=== PATIENT | male | born 1950 | race Caucasian/White ===

== ENCOUNTER 2017-02-03 11:39 | Inpatient (IN) | payer MEDICARE, BC, OTHER ==
[~2017-02-03 11:39] MED LIST: Bisacodyl 5 MG Tab PO PRN; Lactated Ringers 1,000 ML IV SCH; Lidocaine 1%/Sod Bicarbonate in NS 8.4% 1 ML Syringe IV PRN; Magnesium Hydroxide 400 MG/5 ML Susp 30 ML Cup PO PRN; Morphine 2 MG/ML Syringe IVPUSH PRN; Naloxone 0.4 MG/ML SDV IVPUSH PRN; Ondansetron 4 MG/2 ML SDV IVPUSH PRN; Sennosides 8.6 MG Tab PO PRN; Sodium Chloride 0.9% 10 ML Syringe FLUSH PRN; diphenhydrAMINE 50 MG/ML SDV IVPUSH PRN
--- NOTE | 2017-02-03 12:52 | PCM.PREANE ---
Preanesthetic Assessment - Anesthesia/Transfusion/Family Hx Anesthesia History: Prior Anesthesia Without Reaction Family History of Anesthesia Reaction: No Transfusion History: No Prior Transfusion(s) - Review of Systems General: No Symptoms Pulmonary: No Symptoms Cardiovascular: No Symptoms Gastrointestinal: No Symptoms Neurological: No Symptoms Other: Reports: Diabetes (BS: 96 @ 1249) - Physical Assessment NPO Status Date: 02/02/17 NPO Status Time: 00:00 Pulse: 64 O2 Sat by Pulse Oximetry: 94 Respiratory Rate: 16 Blood Pressure: 171/88 Height: 1.78 m Weight: 124 kg ASA Class: 3 Mental Status: Alert & Oriented x3 Airway Class: Mallampati = 2 Dentition: Reports: Normal Dentition, Missing Tooth/Teeth Thyro-Mental Finger Breadths: 2 Mouth Opening Finger Breadths: 2 ROM/Head Extension: Full Lungs: Clear to Auscultation, Normal Respiratory Effort Cardiovascular: Regular Rate, Regular Rhythm - Lab Values: Laboratory Last Values MRSA (PCR) Negative 01/21/17 12:02 - Imaging/EKG Impressions: Sinus rhythm RBBB rate 73 - Allergies Allergies/Adverse Reactions: Allergies Allergy/AdvReac Type Severity Reaction Status Date / Time No Known Allergies Allergy Verified 01/31/17 14:22 - Anesthesia Plan Pre-Op Medication Ordered: None - Acknowledgements Anesthesia Type Planned: Spinal Pt an Appropriate Candidate for the Planned Anesthesia: Yes Alternatives and Risks of Anesthesia Discussed w Pt/Guardian: Yes Pt/Guardian Understands and Agrees with Anesthesia Plan: Yes PreAnesthesia Questionnaire HEENT History: Reports: Hard of Hearing Other HEENT History: uses glasses for reading Cardiovascular History: Reports: High Cholesterol, Hypertension Gastrointestinal History: Reports: GERD Genitourinary History: Reports: BPH Other Genitourinary History: nocturia Musculoskeletal History: Reports: Back Pain, Chronic Other Musculoskeletal History: Shoulder Arthralgia Psychiatric History: Reports: Depression Endocrine/Metabolic History: Reports: Diabetes, Type II, Obesity/BMI 30+ - Infectious Disease History Infectious Disease History: Reports: None - Past Surgical History HEENT Surgical History: Reports: None Cardiovascular Surgical History: Reports: None Respiratory Surgical History: Reports: None GI Surgical History: Reports: None Male Surgical History: Reports: None Endocrine Surgical History: Reports: None Musculoskeletal Surgical History: Reports: Joint Replacement, ORIF - SUBSTANCE USE Smoking Status *Q: Never Smoker Tobacco Use Within Last Twelve Months: Smokeless Tobacco Second Hand Smoke Exposure: No Days Per Week of Alcohol Use: 2 Number of Drinks Per Day: 0 Total Drinks Per Week: 0 Recreational Drug Use History: No - HOME MEDS Home Medications: Home Meds Hydrochlorothiazide 50 mg PO DAILY 10/04/15 [History] Losartan [Cozaar] 100 mg PO DAILY 10/04/15 [History] Omeprazole 20 mg PO DAILY 10/04/15 [History] amLODIPine [Norvasc] 10 mg PO DAILY 10/04/15 [History] atorvaSTATin [Lipitor] 40 mg PO BID 10/04/15 [History] metFORMIN [Glucophage] 1,000 mg PO BID 10/04/15 [History] Cholecalciferol (Vitamin D3) [Vitamin D] 5,000 unit PO DAILY 01/31/17 [History] Finasteride 5 mg PO DAILY 01/31/17 [History] Omeprazole 20 mg PO DAILY 01/31/17 [History] Potassium Chloride 20 meq PO DAILY 01/31/17 [History] Terazosin [Hytrin] 2 mg PO BEDTIME 01/31/17 [History] - CURRENT (IN HOUSE) MEDS Current Meds: Current Medications Aspirin (Ecotrin) 325 mg PO BID [facility] Bisacodyl (Dulcolax) 5 mg PO DAILY PRN PRN Reason: Constipation Cyclobenzaprine HCl (Flexeril) 10 mg PO TID PRN PRN Reason: Spasms Diphenhydramine HCl (Benadryl) 25 mg IVPUSH Q4H PRN PRN Reason: Nausea Docusate Sodium (Colace) 100 mg PO BID [facility] Lactated Ringer's (Ringers, Lactated) 1,000 mls @ 125 mls/hr IV ASDIRECTED [facility] Cefazolin Sodium/Dextrose 2 gm (/ Premix) 50 mls @ 100 mls/hr IV Q8H [facility] Stop: 02/03/17 23:44 Ketorolac Tromethamine (Toradol) 15 mg IVPUSH Q6H PRN PRN Reason: Pain Lidocaine/Sodium Bicarbonate (Buffered Lidocaine 1% In Ns 8.4%) 0.25 ml IV ONETIME PRN PRN Reason: Prior to IV Start Stop: 02/03/17 18:00 Magnesium Hydroxide (Milk Of Magnesia) 30 ml PO BID PRN PRN Reason: Constipation Morphine Sulfate (Morphine) 2 mg IVPUSH Q2H PRN PRN Reason: Breakthrough Pain Naloxone HCl (Narcan) 0.1 mg IVPUSH Q5M PRN PRN Reason: Oversedation Ondansetron HCl (Zofran) 4 mg IVPUSH Q6H PRN PRN Reason: Nausea/Vomiting Oxycodone/Acetaminophen (Percocet 325-5 Mg) 1 - 2 tab PO Q4H PRN PRN Reason: Pain Senna (Senna) 8.6 mg PO BID PRN PRN Reason: Constipation Sodium Chloride (Saline Flush) 10 ml FLUSH ASDIRECTED PRN PRN Reason: Keep Vein Open Discontinued Medications Bupivacaine HCl (Marcaine 0.25%) Confirm Administered Dose 30 ml .ROUTE .STK- MED ONE Stop: 02/03/17 12:28 Cefazolin Sodium (Ancef) Confirm Administered Dose 2 gm .ROUTE .STK-MED ONE Stop: 02/03/17 12:27 Iodine (Iodine 2% Mild Tincture) Confirm Administered Dose 30 ml .ROUTE .STK- MED ONE Stop: 02/03/17 12:28 Tranexamic Acid (Cyklokapron) Confirm Administered Dose 1,000 mg .ROUTE .STK- MED ONE Stop: 02/03/17 12:27 Vancomycin HCl (Vancomycin) Confirm Administered Dose 1 gm .ROUTE .STK-MED ONE Stop: 02/03/17 12:27
[2017-02-03] MEDS ORDERED: fentaNYL 100 MCG/2 ML SDV ONE (13:25)
[2017-02-03] MEDS ORDERED: Propofol 200 MG/20 ML SDV ONE ×3 (13:25→15:24)
[2017-02-03] MEDS ORDERED: Ondansetron 4 MG/2 ML SDV ONE (13:25)
[2017-02-03] MEDS ORDERED: ceFAZolin 1 GM Vial ONE ×2 (13:26→13:27)
[2017-02-03] MEDS ORDERED: Lidocaine 1% 4 ML ONE (13:26)
[2017-02-03] MEDS: Bupivacaine 0.25% 30 ML SDV ONE ×2 (14:39→15:08)
[2017-02-03] MEDS: ceFAZolin 1 GM Vial ONE ×2 (14:40→15:03)
[2017-02-03] MEDS: Iodine/Sodium Iodide 2% Tincture 30 ML Bottle ONE ×2 (14:40→15:01)
[2017-02-03] MEDS: Vancomycin 1 GM SDV ONE ×2 (14:42→15:11)
[2017-02-03] MEDS: Morphine 8 MG, EPINEPHrine 0.3 MG, Cefuroxime 750 MG, Ketorolac 30 MG, Sodium Chloride ... ONE ×15 (14:42→17:51)
[2017-02-03] MEDS ORDERED: Lactated Ringers 1,000 ML ONE ×2 (15:43)
[2017-02-03] MEDS ORDERED: diphenhydrAMINE 50 MG/ML SDV IVPUSH PRN (15:58)
[2017-02-03] MEDS ORDERED: fentaNYL 100 MCG/2 ML SDV IVPUSH PRN (15:58)
--- NOTE | 2017-02-03 15:59 | PCM.POSTAN ---
POST ANESTHESIA ASSESSMENT - MENTAL STATUS Mental Status: Alert, Oriented - VITAL SIGNS Pulse Rate: 67 SaO2: 97 Resp Rate: 9 Blood Pressure: 119/69 Temperature: 36.6 C - RESPIRATORY Respiratory Status: Respiratory Rate WNL, Airway Patent, O2 Saturation Stable, Supplemental Oxygen - CARDIOVASCULAR CV Status: Pulse Rate WNL, Blood Pressure Stable - GASTROINTESTINAL GI Status: No Symptoms - PAIN Pain Score: 0 - POST OP HYDRATION Hydration Status: Adequate & Stable - OBSERVATIONS Free Text/Narrative:: no anesthesia complications noted
--- NOTE | 2017-02-03 16:22 | CR ---
Left knee: AP and lateral portable views of the left knee were obtained. Comparison: No previous knee study. Knee prosthesis is seen. Components are aligned. Soft tissue air is seen from the surgical procedure. Underlying bony structures are intact. Impression: 1. Satisfactory radiographic appearance of recently placed left knee prosthesis. Diagnostic code #2
[2017-02-03] MEDS: metFORMIN 500 MG Tab PO SCH (18:17)
--- NOTE | 2017-02-03 18:28 | PCM.CONS ---
H&P History of Present Illness - General Date of Service: 02/03/17 Admit Problem/Dx: Admission Diagnosis/Problem Admission Diagnosis/Problem Osteoarthritis of knee Source of Information: Patient, Old Records History Limitations: Reports: No Limitations - History of Present Illness Initial Comments - Free Text/Narative: Aditya is a 66-year-old male status post left total knee arthroplasty with Dr. Houston this afternoon. Patient states currently he has no pain in his knee. Legs are still "trying to wake up". He has not had any nausea. He is on 2 L nasal cannula supplemental oxygen currently. Denies shortness of breath chest pain cough palpitations wheezing shortness of breath. He is pleasant and talkative with family in the room this evening. Past medical history type 2 diabetes with recent A1c of 6.1, hypertension, hyperlipidemia, GERD, BPH, depression, chronic low back pain with lumbar spondylosis and degenerative disc disease. Hospitalist service is consulted for postoperative medical management. Patient is full CODE STATUS. Left Knee Pain Score (Numeric/FACES): 5 - Related Data Allergies/Adverse Reactions: Allergies Allergy/AdvReac Type Severity Reaction Status Date / Time No Known Allergies Allergy Verified 01/31/17 14:22 Home Medications: Home Meds amLODIPine [Norvasc] 10 mg PO DAILY 10/04/15 [History] atorvaSTATin [Lipitor] 20 mg PO BID 10/04/15 [History] metFORMIN [Glucophage] 1,000 mg PO BID 10/04/15 [History] Cholecalciferol (Vitamin D3) [Vitamin D] 5,000 unit PO DAILY 01/31/17 [History] Finasteride 5 mg PO DAILY 01/31/17 [History] Omeprazole 20 mg PO DAILY 01/31/17 [History] Potassium Chloride 20 meq PO DAILY 01/31/17 [History] Terazosin [Hytrin] 2 mg PO BEDTIME 01/31/17 [History] Acetaminophen/Diphenhydramine [Tylenol Pm Ex-Strength Caplet] 2 tab PO ASDIRECTED PRN 02/03/17 [History] Aspirin [Carteret Aspirin] 81 mg PO DAILY 02/03/17 [History] Furosemide 60 mg PO DAILY 02/03/17 [History] Magnesium Oxide 1 tab PO DAILY 02/03/17 [History] Meloxicam 15 mg PO DAILY PRN 02/03/17 [History] Past Medical History HEENT History: Reports: Hard of Hearing Other HEENT History: uses glasses for reading Cardiovascular History: Reports: High Cholesterol, Hypertension Gastrointestinal History: Reports: GERD Genitourinary History: Reports: BPH Other Genitourinary History: nocturia Musculoskeletal History: Reports: Back Pain, Chronic Other Musculoskeletal History: Shoulder Arthralgia Psychiatric History: Reports: Depression Endocrine/Metabolic History: Reports: Diabetes, Type II, Obesity/BMI 30+ - Infectious Disease History Infectious Disease History: Reports: None - Past Surgical History HEENT Surgical History: Reports: None Cardiovascular Surgical History: Reports: None Respiratory Surgical History: Reports: None GI Surgical History: Reports: None Male Surgical History: Reports: None Endocrine Surgical History: Reports: None Musculoskeletal Surgical History: Reports: Joint Replacement, ORIF Social & Family History - Tobacco Use Smoking Status *Q: Never Smoker Years of Tobacco use: 8 Used Tobacco, but Quit: Yes Month Tobacco Last Used: 1985 Second Hand Smoke Exposure: No - Caffeine Use Caffeine Use: Reports: Coffee - Alcohol Use Days Per Week of Alcohol Use: 2 Number of Drinks Per Day: 0 Total Drinks Per Week: 0 - Recreational Drug Use Recreational Drug Use: No Drug Use in Last 12 Months: No H&P Review of Systems - Review of Systems: Review Of Systems: See Below General: Reports: No Symptoms HEENT: Reports: No Symptoms Pulmonary: Reports: No Symptoms Cardiovascular: Reports: No Symptoms Gastrointestinal: Reports: No Symptoms Genitourinary: Reports: No Symptoms, Other (soto in place) Musculoskeletal: Reports: No Symptoms, Other (denies c/o knee or leg pain at this time.) Psychiatric: Reports: No Symptoms Neurological: Reports: No Symptoms Exam - Exam Exam: See Below - Vital Signs Vital Signs: Last Vital Signs Temp 97.8 F 02/03/17 16:50 Pulse 54 L 02/03/17 16:50 Resp 16 02/03/17 18:00 BP 121/71 02/03/17 16:50 Pulse Ox 98 02/03/17 18:00 Weight: 275 lb - Exam Quality Assessment: Supplemental Oxygen, Urinary Catheter General: Alert, Oriented, Cooperative HEENT: Conjunctiva Clear, EACs Clear, Mucosa Moist & [place], Pupils Equal, PERRLA Neck: Supple Lungs: Clear to Auscultation, Normal Respiratory Effort Cardiovascular: Regular Rate, Regular Rhythm GI/Abdominal Exam: Normal Bowel Sounds, Soft, Non-Tender (Male) Exam: Deferred Rectal (Males) Exam: Deferred Extremities: Normal Capillary Refill, Other (Mickey and ice to knee) Neurological: Cranial Nerves Intact Neuro Extensive - Mental Status: Alert, Oriented x3, Normal Mood/Affect, Normal Cognition, Memory Intact Psychiatric: Alert, Normal Affect, Normal Mood - Patient Data Lab Results Last 24 hrs: Laboratory Results - last 24 hr 02/03/17 02/03/17 02/03/17 Range/Units 12:25 12:25 12:49 APTT 27 (22-36) SECONDS Sodium 140 (136-145) mEq/L Potassium 3.6 (3.5-5.1) mEq/L Chloride 104 (98-107) mEq/L Carbon Dioxide 28 (21-32) mEq/L Anion Gap 11.6 (5-15) BUN 12 (7-18) mg/dL Creatinine 0.8 (0.7-1.3) mg/dL Est Cr Clr Drug Dosing TNP Estimated GFR (MDRD) > 60 (>60) mL/min BUN/Creatinine Ratio 15.0 (14-18) Glucose 100 (80-115) mg/dL POC Glucose 96 (80-115) mg/dL Calcium 9.6 (8.5-10.1) mg/dL 02/03/17 Range/Units 17:21 APTT (22-36) SECONDS Sodium (136-145) mEq/L Potassium (3.5-5.1) mEq/L Chloride (98-107) mEq/L Carbon Dioxide (21-32) mEq/L Anion Gap (5-15) BUN (7-18) mg/dL Creatinine (0.7-1.3) mg/dL Est Cr Clr Drug Dosing Estimated GFR (MDRD) (>60) mL/min BUN/Creatinine Ratio (14-18) Glucose (80-115) mg/dL POC Glucose 107 (80-115) mg/dL Calcium (8.5-10.1) mg/dL Result Diagrams: 02/03/17 12:25 Consult PN Assessment/Plan POD#: 0 Procedures: Procedures ASSAY OF CREATININE (05/14/16) ASSAY OF MAGNESIUM (01/27/17) C-REACTIVE PROTEIN (07/29/14) COLONOSCOPY W/LESION REMOVAL (10/04/15) COMPLETE CBC W/AUTO DIFF WBC (07/29/14) COMPREHEN METABOLIC PANEL (01/27/17) CT ABD & PELV 1/> REGNS (05/14/16) EXTREMITY STUDY (12/18/16) GLUCOSE BLOOD TEST (10/04/15) LIPID PANEL (01/14/17) METABOLIC PANEL TOTAL CA (12/31/16) MRI LUMBAR SPINE W/O DYE (12/17/16) OFFICE/OUTPATIENT VISIT EST (01/14/17) OFFICE/OUTPATIENT VISIT NEW (12/18/16) RBC SED RATE AUTOMATED (07/29/14) ROUTINE VENIPUNCTURE (01/27/17) TISSUE EXAM BY PATHOLOGIST (10/04/15) (1) S/P total knee arthroplasty SNOMED Code(s): 5743659403557, 7251333892276 Code(s): Z96.659 - PRESENCE OF UNSPECIFIED ARTIFICIAL KNEE JOINT Priority: High Current Visit: Yes Qualifiers: Laterality: left Qualified Code(s): Z96.652 - Presence of left artificial knee joint (2) Osteoarthritis SNOMED Code(s): 369172784 Code(s): M19.90 - UNSPECIFIED OSTEOARTHRITIS, UNSPECIFIED SITE Priority: High Current Visit: Yes Qualifiers: Osteoarthritis location: knee Osteoarthritis type: primary Laterality: left Qualified Code(s): M17.12 - Unilateral primary osteoarthritis, left knee (3) Type 2 diabetes mellitus SNOMED Code(s): 03215957 Code(s): E11.9 - TYPE 2 DIABETES MELLITUS WITHOUT COMPLICATIONS Priority: Medium Current Visit: Yes Qualifiers: Diabetes mellitus complication status: without complication Diabetes mellitus community development manager insulin use: without community development manager use Qualified Code(s): E11.9 - Type 2 diabetes mellitus without complications (4) HTN (hypertension) SNOMED Code(s): 26780270 Code(s): I10 - ESSENTIAL (PRIMARY) HYPERTENSION Priority: Medium Current Visit: Yes Qualifiers: Hypertension type: unspecified Qualified Code(s): I10 - Essential (primary ) hypertension (5) HLD (hyperlipidemia) SNOMED Code(s): 12165694 Code(s): E78.5 - HYPERLIPIDEMIA, UNSPECIFIED Priority: Medium Current Visit: No Qualifiers: Hyperlipidemia type: unspecified Qualified Code(s): E78.5 - Hyperlipidemia , unspecified (6) BPH (benign prostatic hyperplasia) SNOMED Code(s): 081951355 Code(s): N40.0 - BENIGN PROSTATIC HYPERPLASIA WITHOUT LOWER URINRY TRACT SYMP Priority: Medium Current Visit: Yes Qualifiers: Lower urinary tract symptom detail: unspecified (7) GERD (gastroesophageal reflux disease) SNOMED Code(s): 471191177 Code(s): K21.9 - GASTRO-ESOPHAGEAL REFLUX DISEASE WITHOUT ESOPHAGITIS Priority: Medium Current Visit: Yes (8) Depression SNOMED Code(s): 02078373 Code(s): F32.9 - MAJOR DEPRESSIVE DISORDER, SINGLE EPISODE, UNSPECIFIED Priority: Medium Current Visit: No Qualifiers: Depression Type: unspecified Qualified Code(s): F32.9 - Major depressive disorder, single episode, unspecified (9) Chronic low back pain SNOMED Code(s): 109894043 Code(s): M54.5 - LOW BACK PAIN; G89.29 - OTHER CHRONIC PAIN Priority: Medium Current Visit: No Qualifiers: Back pain laterality: unspecified Problem List Initiated/Reviewed/Updated: Yes Plan: I/P: S/P lt total knee arthroplasty, POD # 0, Cte - Pain management and DVT prophylax - PT/OT - RT/IS - Hgb --Will follow with am labs - VSS; wean from supplemental oxygen when able. Chronic conditions: Type 2 diabetes, most recent A1c 6.1. -Accu-Cheks before meals and at bedtime, continue home medications, sliding scale insulin if needed -Hypertension, continue home meds, stable -Hyperlipidemia -GERD -BPH, Soto catheter in currently discontinue per protocol and monitor urine output -Depression -Chronic low back pain -Right bundle branch block Other: GI Prophylax CM/SW for DC planning Patient is full Code status.
[2017-02-03] MEDS ORDERED: 50% Dextrose in Water 50 ML Syringe IVPUSH PRN (18:37)
[2017-02-03] MEDS: Acetaminophen/oxyCODONE 325-5 MG Tab PO PRN (19:51)
[2017-02-03] MEDS: Docusate Sodium 100 MG Cap PO SCH (20:09)
[2017-02-03] MEDS: Simvastatin 20 MG Tab PO SCH (20:10)
[2017-02-03] MEDS: Potassium Chloride 10 MEQ Tab.ER PO SCH (20:11)
[2017-02-03] MEDS ORDERED: Simvastatin 20 MG Tab PO SCH (21:00)
[2017-02-03] MEDS ORDERED: Terazosin 1 MG Cap PO SCH (21:00)
[2017-02-03] MEDS: ceFAZolin 2 GM in Premix Bag 1 BAG IV SCH (21:05)
[2017-02-03] MEDS: Ketorolac 15 MG/ML SDV IVPUSH PRN (22:09)
[2017-02-03] MEDS: Insulin Aspart 100 Units/ML 3 ML Pen SUBCUT SCH (23:10)
[2017-02-04] MEDS: Acetaminophen/oxyCODONE 325-5 MG Tab PO PRN ×2 (01:23→17:13)
[2017-02-04] MEDS: Cyclobenzaprine 10 MG Tab PO PRN ×2 (01:23→14:05)
[2017-02-04] MEDS ORDERED: Potassium Chloride 20 MEQ Tab.ER PO SCH (07:00)
[2017-02-04] MEDS: Insulin Aspart 100 Units/ML 3 ML Pen SUBCUT SCH ×4 (12:08→23:02)
[2017-02-04] MEDS: ceFAZolin 2 GM in Premix Bag 1 BAG IV SCH ×2 (12:43→18:05)
[2017-02-04] MEDS: Ketorolac 15 MG/ML SDV IVPUSH PRN (14:05)
--- NOTE | 2017-02-04 16:37 | PCM.CONSN ---
- General Info Date of Service: 02/04/17 Admission Dx/Problem (Free Text): Admission Diagnosis/Problem Admission Diagnosis/Problem Osteoarthritis of knee POD #1 S/P Lt TKA with Dr. Houston. Pain is "unbelievable". Slept most of the night, concern for undiagnosed REBECCA as oxygen was low most of night despite being on supplemental oxygen. Tolerating meals without n/v. When I saw him this morning he had not yet been OOB as the knee "just hurts too much". VSS otherwise. Functional Status: Reports: Tolerating Diet, Incentive Spirometry - Review of Systems General: Reports: No Symptoms HEENT: Reports: No Symptoms Pulmonary: Reports: No Symptoms Cardiovascular: Reports: No Symptoms Gastrointestinal: Reports: No Symptoms Genitourinary: Reports: No Symptoms Musculoskeletal: Reports: Leg Pain (knee) Skin: Reports: No Symptoms Neurological: Reports: No Symptoms Psychiatric: Reports: No Symptoms - Patient Data Vitals - Most Recent: Last Vital Signs Temp 97.5 F 02/03/17 17:14 Pulse 59 L 02/03/17 20:02 Resp 16 02/04/17 00:00 BP 134/76 02/03/17 20:02 Pulse Ox 94 L 02/04/17 00:00 Weight - Most Recent: 275 lb I&O - Last 24 Hours: Intake & Output 02/03/17 02/04/17 02/04/17 22:59 06:59 14:59 Intake Total 1045 120 Output Total 650 Balance 395 120 Lab Results Last 24 Hours: Laboratory Results - last 24 hr 02/03/17 02/03/17 02/03/17 Range/Units 12:25 12:25 12:49 APTT 27 (22-36) SECONDS Sodium 140 (136-145) mEq/L Potassium 3.6 (3.5-5.1) mEq/L Chloride 104 (98-107) mEq/L Carbon Dioxide 28 (21-32) mEq/L Anion Gap 11.6 (5-15) BUN 12 (7-18) mg/dL Creatinine 0.8 (0.7-1.3) mg/dL Est Cr Clr Drug Dosing TNP Estimated GFR (MDRD) > 60 (>60) mL/min BUN/Creatinine Ratio 15.0 (14-18) Glucose 100 (80-115) mg/dL POC Glucose 96 (80-115) mg/dL Calcium 9.6 (8.5-10.1) mg/dL 02/03/17 02/03/17 Range/Units 17:21 22:12 APTT (22-36) SECONDS Sodium (136-145) mEq/L Potassium (3.5-5.1) mEq/L Chloride (98-107) mEq/L Carbon Dioxide (21-32) mEq/L Anion Gap (5-15) BUN (7-18) mg/dL Creatinine (0.7-1.3) mg/dL Est Cr Clr Drug Dosing Estimated GFR (MDRD) (>60) mL/min BUN/Creatinine Ratio (14-18) Glucose (80-115) mg/dL POC Glucose 107 97 (80-115) mg/dL Calcium (8.5-10.1) mg/dL Med Orders - Current: Current Medications Amlodipine Besylate (Norvasc) 10 mg PO DAILY [facility] Aspirin (Ecotrin) 325 mg PO BID [facility] Bisacodyl (Dulcolax) 5 mg PO DAILY PRN PRN Reason: Constipation Cholecalciferol (Vitamin D3) 5,000 units PO DAILY [facility] Cyclobenzaprine HCl (Flexeril) 10 mg PO TID PRN PRN Reason: Spasms Last Admin: 02/04/17 01:23 Dose: 10 mg Dextrose/Water (Dextrose 50% In Water) 50 ml IVPUSH ASDIRECTED PRN PRN Reason: Hypoglycemia Diphenhydramine HCl (Benadryl) 25 mg IVPUSH Q4H PRN PRN Reason: Nausea Diphenhydramine HCl (Benadryl) 25 mg IVPUSH Q6H PRN PRN Reason: Itching Docusate Sodium (Colace) 100 mg PO BID [facility] Last Admin: 02/03/17 20:09 Dose: 100 mg Fentanyl (Sublimaze) 50 mcg IVPUSH Q5M PRN PRN Reason: PAIN Finasteride (Proscar) 5 mg PO DAILY [facility] Furosemide (Lasix) 60 mg PO DAILY [facility] Cefazolin Sodium/Dextrose 2 gm (/ Premix) 50 mls @ 100 mls/hr IV Q8H [facility] Stop: 02/04/17 13:59 Last Admin: 02/03/17 21:05 Dose: 100 mls/hr Insulin Aspart (Novolog) 0 unit SUBCUT QIDACANDBED [facility] PRN Reason: Protocol Last Admin: 02/04/17 12:08 Dose: Not Given Ketorolac Tromethamine (Toradol) 15 mg IVPUSH Q6H PRN PRN Reason: Pain Last Admin: 02/03/17 22:09 Dose: 15 mg Losartan Potassium (Cozaar) 100 mg PO DAILY [facility] Magnesium Hydroxide (Milk Of Magnesia) 30 ml PO BID PRN PRN Reason: Constipation Magnesium Oxide (Magnesium Oxide) 400 mg PO DAILY [facility] Metformin HCl (Glucophage) 1,000 mg PO BIDMEALS [facility] Last Admin: 02/03/17 18:17 Dose: 1,000 mg Morphine Sulfate (Morphine) 2 mg IVPUSH Q2H PRN PRN Reason: Breakthrough Pain Naloxone HCl (Narcan) 0.1 mg IVPUSH Q5M PRN PRN Reason: Oversedation Ondansetron HCl (Zofran) 4 mg IVPUSH Q6H PRN PRN Reason: Nausea/Vomiting Oxycodone/Acetaminophen (Percocet 325-5 Mg) 1 - 2 tab PO Q4H PRN PRN Reason: Pain Last Admin: 02/04/17 01:23 Dose: 2 tab Pantoprazole Sodium (Protonix) 40 mg PO ACBREAKFAST [facility] Potassium Chloride (Klor-Con 10) 20 meq PO BID [facility] Last Admin: 02/03/17 20:11 Dose: 20 meq Senna (Senna) 8.6 mg PO BID PRN PRN Reason: Constipation Simvastatin (Zocor) 20 mg PO BEDTIME [facility] Last Admin: 02/03/17 20:10 Dose: 20 mg Sodium Chloride (Saline Flush) 10 ml FLUSH ASDIRECTED PRN PRN Reason: Keep Vein Open Discontinued Medications Bupivacaine HCl (Marcaine 0.25%) Confirm Administered Dose 30 ml .ROUTE .STK- MED ONE Stop: 02/03/17 12:28 Last Admin: 02/03/17 15:08 Dose: 30 ml Cefazolin Sodium (Ancef) Confirm Administered Dose 2 gm .ROUTE .STK-MED ONE Stop: 02/03/17 12:27 Last Admin: 02/03/17 15:03 Dose: 2 gm Cefazolin Sodium (Ancef) Confirm Administered Dose 2 gm .ROUTE .STK-MED ONE Stop: 02/03/17 13:27 Cefazolin Sodium (Ancef) Confirm Administered Dose 1 gm .ROUTE .STK-MED ONE Stop: 02/03/17 13:28 Morphine Sulfate 8 mg/Epinephrine HCl 0.3 mg/Cefuroxime Sodium 750 mg/Ketorolac Tromethamine 30 mg/Sodium Chloride 17.9 ml 0 mg .XX ONETIME ONE Stop: 02/03/17 14:46 Last Admin: 02/03/17 17:51 Dose: Not Given Fentanyl (Sublimaze) Confirm Administered Dose 100 mcg .ROUTE .STK-MED ONE Stop: 02/03/17 13:26 Lactated Ringer's (Ringers, Lactated) 1,000 mls @ 125 mls/hr IV ASDIRECTED CLEOPATRA Last Admin: 02/03/17 12:25 Dose: 125 mls/hr Lidocaine HCl (Xylocaine-Mpf 1%) Confirm Administered Dose 4 mls @ as directed .ROUTE .STK-MED ONE Stop: 02/03/17 13:27 Lactated Ringer's (Ringers, Lactated) Confirm Administered Dose 1,000 mls @ as directed .ROUTE .STK-MED ONE Stop: 02/03/17 15:44 Lactated Ringer's (Ringers, Lactated) Confirm Administered Dose 1,000 mls @ as directed .ROUTE .STK-MED ONE Stop: 02/03/17 15:44 Iodine (Iodine 2% Mild Tincture) Confirm Administered Dose 30 ml .ROUTE .STK- MED ONE Stop: 02/03/17 12:28 Last Admin: 02/03/17 15:01 Dose: 18 ml Lidocaine/Sodium Bicarbonate (Buffered Lidocaine 1% In Ns 8.4%) 0.25 ml IV ONETIME PRN PRN Reason: Prior to IV Start Stop: 02/03/17 18:00 Last Admin: 02/03/17 12:24 Dose: 0.25 ml Ondansetron HCl (Zofran) Confirm Administered Dose 4 mg .ROUTE .STK-MED ONE Stop: 02/03/17 13:26 Propofol (Diprivan 20 Ml) Confirm Administered Dose 200 mg .ROUTE .STK-MED ONE Stop: 02/03/17 13:26 Propofol (Diprivan 20 Ml) Confirm Administered Dose 200 mg .ROUTE .STK-MED ONE Stop: 02/03/17 14:48 Propofol (Diprivan 20 Ml) Confirm Administered Dose 200 mg .ROUTE .STK-MED ONE Stop: 02/03/17 15:25 Tranexamic Acid (Cyklokapron) Confirm Administered Dose 1,000 mg .ROUTE .STK- MED ONE Stop: 02/03/17 12:27 Last Admin: 02/03/17 15:16 Dose: 1,000 mg Vancomycin HCl (Vancomycin) Confirm Administered Dose 1 gm .ROUTE .STK-MED ONE Stop: 02/03/17 12:27 Last Admin: 02/03/17 15:11 Dose: 1 gm - Exam Quality Assessment: Supplemental Oxygen, DVT Prophylaxis General: Alert, Oriented, Cooperative, No Acute Distress HEENT: Pupils Equal, EOMI, Mucous Membr. Moist/[place] Neck: Supple Lungs: Clear to Auscultation, Normal Respiratory Effort Cardiovascular: Regular Rate, Regular Rhythm GI/Abdominal Exam: Normal Bowel Sounds, Soft, Non-Tender (Male) Exam: Deferred Extremities: Other (Ice and kanchan to lt knee; CMS + and = bilat to LE) Peripheral Pulses: 1+: Dorsalis Pedis (L), Dorsalis Pedis (R) Neurological: No New Focal Deficit Psy/Mental Status: Alert (falling asleep during conversation this morning ) Consult PN Assessment/Plan POD#: 1 Procedures: Procedures ASSAY OF CREATININE (05/14/16) ASSAY OF MAGNESIUM (01/27/17) C-REACTIVE PROTEIN (07/29/14) COLONOSCOPY W/LESION REMOVAL (10/04/15) COMPLETE CBC W/AUTO DIFF WBC (07/29/14) COMPREHEN METABOLIC PANEL (01/27/17) CT ABD & PELV 1/> REGNS (05/14/16) EXTREMITY STUDY (12/18/16) GLUCOSE BLOOD TEST (10/04/15) LIPID PANEL (01/14/17) METABOLIC PANEL TOTAL CA (12/31/16) MRI LUMBAR SPINE W/O DYE (12/17/16) OFFICE/OUTPATIENT VISIT EST (01/14/17) OFFICE/OUTPATIENT VISIT NEW (12/18/16) RBC SED RATE AUTOMATED (07/29/14) ROUTINE VENIPUNCTURE (01/27/17) TISSUE EXAM BY PATHOLOGIST (10/04/15) (1) S/P total knee arthroplasty SNOMED Code(s): 7936471436769, 7605382593140 Code(s): Z96.659 - PRESENCE OF UNSPECIFIED ARTIFICIAL KNEE JOINT Priority: High Current Visit: Yes Qualifiers: Laterality: left Qualified Code(s): Z96.652 - Presence of left artificial knee joint (2) Osteoarthritis SNOMED Code(s): 046065543 Code(s): M19.90 - UNSPECIFIED OSTEOARTHRITIS, UNSPECIFIED SITE Priority: High Current Visit: Yes Qualifiers: Osteoarthritis location: knee Osteoarthritis type: primary Laterality: left Qualified Code(s): M17.12 - Unilateral primary osteoarthritis, left knee (3) Type 2 diabetes mellitus SNOMED Code(s): 46878974 Code(s): E11.9 - TYPE 2 DIABETES MELLITUS WITHOUT COMPLICATIONS Priority: Medium Current Visit: Yes Qualifiers: Diabetes mellitus complication status: without complication Diabetes mellitus retirement insulin use: without retirement use Qualified Code(s): E11.9 - Type 2 diabetes mellitus without complications (4) HTN (hypertension) SNOMED Code(s): 86653090 Code(s): I10 - ESSENTIAL (PRIMARY) HYPERTENSION Priority: Medium Current Visit: Yes Qualifiers: Hypertension type: unspecified Qualified Code(s): I10 - Essential (primary ) hypertension (5) HLD (hyperlipidemia) SNOMED Code(s): 13211471 Code(s): E78.5 - HYPERLIPIDEMIA, UNSPECIFIED Priority: Medium Current Visit: No Qualifiers: Hyperlipidemia type: unspecified Qualified Code(s): E78.5 - Hyperlipidemia , unspecified (6) BPH (benign prostatic hyperplasia) SNOMED Code(s): 072784877 Code(s): N40.0 - BENIGN PROSTATIC HYPERPLASIA WITHOUT LOWER URINRY TRACT SYMP Priority: Medium Current Visit: Yes Qualifiers: Lower urinary tract symptom detail: unspecified (7) GERD (gastroesophageal reflux disease) SNOMED Code(s): 074663179 Code(s): K21.9 - GASTRO-ESOPHAGEAL REFLUX DISEASE WITHOUT ESOPHAGITIS Priority: Medium Current Visit: Yes (8) Depression SNOMED Code(s): 36247539 Code(s): F32.9 - MAJOR DEPRESSIVE DISORDER, SINGLE EPISODE, UNSPECIFIED Priority: Medium Current Visit: No Qualifiers: Depression Type: unspecified Qualified Code(s): F32.9 - Major depressive disorder, single episode, unspecified (9) Chronic low back pain SNOMED Code(s): 549909060 Code(s): M54.5 - LOW BACK PAIN; G89.29 - OTHER CHRONIC PAIN Priority: Medium Current Visit: No Qualifiers: Back pain laterality: unspecified Problem List Initiated/Reviewed/Updated: Yes My Orders Last 24 Hours: My Active Orders 02/03/17 18:36 Accu Check [Blood Glucose Check, Bedside] [RC] WITHMEALSANDBED 02/03/17 18:37 Dextrose 50% in Water 50 ml IVPUSH ASDIRECTED PRN 02/03/17 21:00 Potassium Chloride [Klor-Con 10] 20 meq PO BID Simvastatin [Zocor] 20 mg PO BEDTIME 02/03/17 22:00 Insulin Aspart [NovoLOG] See Protocol SUBCUT QIDACANDBED 02/04/17 09:00 Losartan [Cozaar] 100 mg PO DAILY 02/04/17 Breakfast ADA Diabetic [[employer] Diet] [DIET] Plan: I/P: S/P lt total knee arthroplasty, POD # 1, Cte - Pain management and DVT prophylax - PT/OT - RT/IS - Hgb --13.5 - VSS; wean from supplemental oxygen when able. Chronic conditions: Type 2 diabetes, most recent A1c 6.1. -Accu-Cheks before meals and at bedtime, continue home medications, sliding scale insulin if needed--sugar thi smorning 116 -Hypertension, continue home meds, stable -Hyperlipidemia -GERD -BPH, Hernandes catheter in currently discontinue per protocol and monitor urine output -Depression -Chronic low back pain -Right bundle branch block Other: GI Prophylax CM/SW for DC planning--Patient is OK for discharge today from Hospitalist standpoint, recommend f/up with PCP for REBECCA evaluation. Can DC if OK with PT and Ortho today. Patient is full Code status.
--- NOTE | 2017-02-04 16:38 | PCM48HPAN ---
Post Anesthesia Note - EVALUATION WITHIN 48HRS OF ANESTHETIC Vital Signs in Normal Range: Yes Patient Participated in Evaluation: Yes Respiratory Function Stable: Yes Airway Patent: Yes Cardiovascular Function Stable: Yes Hydration Status Stable: Yes Pain Control Satisfactory: Yes Nausea and Vomiting Control Satisfactory: Yes Mental Status Recovered: Yes
[2017-02-04] MEDS ORDERED: oxyCODONE 5 MG Tab PO ONE (17:58)
[2017-02-04] MEDS: Magnesium Oxide 400 MG Tab PO SCH (18:04)
[2017-02-04] MEDS: Aspirin 325 MG Tab.EC PO SCH ×2 (18:04→20:05)
[2017-02-04] MEDS: Potassium Chloride 10 MEQ Tab.ER PO SCH ×2 (18:04→20:05)
[2017-02-04] MEDS: Losartan 100 MG Tab PO SCH (18:04)
[2017-02-04] MEDS: Docusate Sodium 100 MG Cap PO SCH ×2 (18:04→20:04)
[2017-02-04] MEDS: Furosemide 20 MG Tab PO SCH (18:04)
[2017-02-04] MEDS: Finasteride 5 MG Tab PO SCH (18:05)
[2017-02-04] MEDS: Cholecalciferol (Vitamin D3) 1,000 Unit Tab PO SCH (18:05)
[2017-02-04] MEDS: amLODIPine 10 MG Tab PO SCH (18:05)
[2017-02-04] MEDS: metFORMIN 500 MG Tab PO SCH ×2 (18:16→20:03)
[2017-02-04] MEDS: Pantoprazole 40 MG Tab.CR PO SCH (18:16)
[2017-02-04] MEDS: Simvastatin 20 MG Tab PO SCH (20:05)
[2017-02-04] MEDS: oxyCODONE 5 MG Tab PO PRN (22:54)
[2017-02-05] MEDS: Acetaminophen/oxyCODONE 325-5 MG Tab PO PRN ×2 (00:29→09:23)
[2017-02-05] MEDS: oxyCODONE 5 MG Tab PO PRN (05:08)
[2017-02-05] MEDS: Cyclobenzaprine 10 MG Tab PO PRN (05:09)
[2017-02-05] MEDS: Pantoprazole 40 MG Tab.CR PO SCH (05:09)
[2017-02-05] MEDS: Insulin Aspart 100 Units/ML 3 ML Pen SUBCUT SCH (07:36)
[2017-02-05] MEDS: Cholecalciferol (Vitamin D3) 1,000 Unit Tab PO SCH (09:09)
[2017-02-05] MEDS: Magnesium Oxide 400 MG Tab PO SCH (09:09)
[2017-02-05] MEDS: Docusate Sodium 100 MG Cap PO SCH (09:09)
[2017-02-05] MEDS: Potassium Chloride 10 MEQ Tab.ER PO SCH (09:09)
[2017-02-05] MEDS: Finasteride 5 MG Tab PO SCH (09:09)
[2017-02-05] MEDS: Aspirin 325 MG Tab.EC PO SCH (09:09)
[2017-02-05] MEDS: amLODIPine 10 MG Tab PO SCH (09:09)
[2017-02-05] MEDS: metFORMIN 500 MG Tab PO SCH (09:10)
[2017-02-05 09:11] VITALS: BP 145/73
[2017-02-05] MEDS: Furosemide 20 MG Tab PO SCH (09:11)
[2017-02-05] MEDS: Losartan 100 MG Tab PO SCH (09:11)
[2017-02-05] MEDS ORDERED: Bisacodyl 10 MG Supp RECTAL ONE (10:20)
--- NOTE | 2017-02-05 10:50 | PCM.SURGPN ---
- General Info Date of Service: 02/04/17 POD#: 1 Functional Status: Reports: Tolerating Diet, Ambulating, Urinating, Incentive Spirometry (The pt's pain has not been controlled. ) - Patient Data Vitals - Most Recent: Last Vital Signs Temp 99.0 F 02/05/17 07:30 Pulse 93 02/05/17 07:30 Resp 16 02/05/17 07:30 BP 145/73 H 02/05/17 09:11 Pulse Ox 92 L 02/05/17 07:30 Weight - Most Recent: 285 lb 3.2 oz I&O - Last 24 Hours: Intake & Output 02/04/17 02/05/17 02/05/17 22:59 06:59 14:59 Intake Total 1110 240 0 Output Total 800 600 Balance 310 -360 0 Lab Results Last 24 Hrs: Laboratory Results - last 24 hr 02/04/17 02/04/17 02/04/17 Range/Units 04:50 04:50 05:09 WBC 9.89 H (4.23-9.07) K/mm3 RBC 4.86 (4.63-6.08) M/mm3 Hgb 13.5 L (13.7-17.5) gm/L Hct 41.5 (40.1-51.0) % MCV 85.4 (79.0-92.2) fl MCH 27.8 (25.7-32.2) pg MCHC 32.5 (32.2-35.5) g/dl RDW Std Deviation 43.8 (35.1-43.9) fL Plt Count 161 L (163-337) K/mm3 MPV 12.2 (9.4-12.3) fl Neut % (Auto) 71.4 H (34.0-67.9) % Lymph % (Auto) 16.3 L (21.8-53.1) % [place] % (Auto) 10.7 (5.3-12.2) % Eos % (Auto) 1.3 (0.8-7.0) Baso % (Auto) 0.1 (0.1-1.2) % Neut # (Auto) 7.06 H (1.78-5.38) K/mm3 Lymph # (Auto) 1.61 (1.32-3.57) K/mm3 [place] # (Auto) 1.06 H (0.30-0.82) K/mm3 Eos # (Auto) 0.13 (0.04-0.54) K/mm3 Baso # (Auto) 0.01 (0.01-0.08) K/mm3 Sodium 140 (136-145) mEq/L Potassium 3.5 (3.5-5.1) mEq/L Chloride 103 (98-107) mEq/L Carbon Dioxide 30 (21-32) mEq/L Anion Gap 10.5 (5-15) BUN 14 (7-18) mg/dL Creatinine 0.9 (0.7-1.3) mg/dL Est Cr Clr Drug Dosing 84.49 mL/min Estimated GFR (MDRD) > 60 (>60) mL/min BUN/Creatinine Ratio 15.6 (14-18) Glucose 125 H (80-115) mg/dL POC Glucose 116 H (80-115) mg/dL Calcium 8.5 (8.5-10.1) mg/dL Total Bilirubin 0.7 (0.2-1.0) mg/dL AST 18 (15-37) U/L ALT 27 (16-63) U/L Alkaline Phosphatase 57 (46-116) U/L Total Protein 6.9 (6.4-8.2) g/dl Albumin 3.2 L (3.4-5.0) g/dl Globulin 3.7 gm/dL Albumin/Globulin Ratio 0.9 L (1-2) 02/04/17 02/04/17 02/05/17 Range/Units 10:06 22:45 04:42 WBC (4.23-9.07) K/mm3 RBC (4.63-6.08) M/mm3 Hgb (13.7-17.5) gm/L Hct (40.1-51.0) % MCV (79.0-92.2) fl MCH (25.7-32.2) pg MCHC (32.2-35.5) g/dl RDW Std Deviation (35.1-43.9) fL Plt Count (163-337) K/mm3 MPV (9.4-12.3) fl Neut % (Auto) (34.0-67.9) % Lymph % (Auto) (21.8-53.1) % [place] % (Auto) (5.3-12.2) % Eos % (Auto) (0.8-7.0) Baso % (Auto) (0.1-1.2) % Neut # (Auto) (1.78-5.38) K/mm3 Lymph # (Auto) (1.32-3.57) K/mm3 [place] # (Auto) (0.30-0.82) K/mm3 Eos # (Auto) (0.04-0.54) K/mm3 Baso # (Auto) (0.01-0.08) K/mm3 Sodium (136-145) mEq/L Potassium (3.5-5.1) mEq/L Chloride (98-107) mEq/L Carbon Dioxide (21-32) mEq/L Anion Gap (5-15) BUN (7-18) mg/dL Creatinine (0.7-1.3) mg/dL Est Cr Clr Drug Dosing mL/min Estimated GFR (MDRD) (>60) mL/min BUN/Creatinine Ratio (14-18) Glucose (80-115) mg/dL POC Glucose 130 H 144 H 145 H (80-115) mg/dL Calcium (8.5-10.1) mg/dL Total Bilirubin (0.2-1.0) mg/dL AST (15-37) U/L ALT (16-63) U/L Alkaline Phosphatase (46-116) U/L Total Protein (6.4-8.2) g/dl Albumin (3.4-5.0) g/dl Globulin gm/dL Albumin/Globulin Ratio (1-2) Med Orders - Current: Current Medications Amlodipine Besylate (Norvasc) 10 mg PO DAILY [facility] Last Admin: 02/05/17 09:09 Dose: 10 mg Aspirin (Ecotrin) 325 mg PO BID [facility] Last Admin: 02/05/17 09:09 Dose: 325 mg Bisacodyl (Dulcolax) 5 mg PO DAILY PRN PRN Reason: Constipation Cholecalciferol (Vitamin D3) 5,000 units PO DAILY [facility] Last Admin: 02/05/17 09:09 Dose: 5,000 units Cyclobenzaprine HCl (Flexeril) 10 mg PO TID PRN PRN Reason: Spasms Last Admin: 02/05/17 05:09 Dose: 10 mg Dextrose/Water (Dextrose 50% In Water) 50 ml IVPUSH ASDIRECTED PRN PRN Reason: Hypoglycemia Diphenhydramine HCl (Benadryl) 25 mg IVPUSH Q4H PRN PRN Reason: Nausea Diphenhydramine HCl (Benadryl) 25 mg IVPUSH Q6H PRN PRN Reason: Itching Docusate Sodium (Colace) 100 mg PO BID [facility] Last Admin: 02/05/17 09:09 Dose: 100 mg Fentanyl (Sublimaze) 50 mcg IVPUSH Q5M PRN PRN Reason: PAIN Finasteride (Proscar) 5 mg PO DAILY [facility] Last Admin: 02/05/17 09:09 Dose: 5 mg Furosemide (Lasix) 60 mg PO DAILY [facility] Last Admin: 02/05/17 09:11 Dose: 60 mg Insulin Aspart (Novolog) 0 unit SUBCUT QIDACANDBED [facility] PRN Reason: Protocol Last Admin: 02/05/17 07:36 Dose: Not Given Losartan Potassium (Cozaar) 100 mg PO DAILY [facility] Last Admin: 02/05/17 09:11 Dose: 100 mg Magnesium Hydroxide (Milk Of Magnesia) 30 ml PO BID PRN PRN Reason: Constipation Last Admin: 02/05/17 05:10 Dose: 30 ml Magnesium Oxide (Magnesium Oxide) 400 mg PO DAILY [facility] Last Admin: 02/05/17 09:09 Dose: 400 mg Metformin HCl (Glucophage) 1,000 mg PO BIDMEALS [facility] Last Admin: 02/05/17 09:10 Dose: 1,000 mg Morphine Sulfate (Morphine) 2 mg IVPUSH Q2H PRN PRN Reason: Breakthrough Pain Naloxone HCl (Narcan) 0.1 mg IVPUSH Q5M PRN PRN Reason: Oversedation Ondansetron HCl (Zofran) 4 mg IVPUSH Q6H PRN PRN Reason: Nausea/Vomiting Oxycodone HCl (Oxycodone) 5 mg PO Q6H PRN PRN Reason: Pain Last Admin: 02/05/17 05:08 Dose: 5 mg Oxycodone/Acetaminophen (Percocet 325-5 Mg) 1 - 2 tab PO Q4H PRN PRN Reason: Pain Last Admin: 02/05/17 09:23 Dose: 2 tab Pantoprazole Sodium (Protonix) 40 mg PO ACBREAKFAST [facility] Last Admin: 02/05/17 05:09 Dose: 40 mg Potassium Chloride (Klor-Con 10) 20 meq PO BID [facility] Last Admin: 02/05/17 09:09 Dose: 20 meq Senna (Senna) 8.6 mg PO BID PRN PRN Reason: Constipation Simvastatin (Zocor) 20 mg PO BEDTIME [facility] Last Admin: 02/04/17 20:05 Dose: 20 mg Sodium Chloride (Saline Flush) 10 ml FLUSH ASDIRECTED PRN PRN Reason: Keep Vein Open Discontinued Medications Bisacodyl (Dulcolax) 10 mg RECTAL ONETIME ONE Stop: 02/05/17 10:21 Last Admin: 02/05/17 10:36 Dose: 10 mg Bupivacaine HCl (Marcaine 0.25%) Confirm Administered Dose 30 ml .ROUTE .STK- MED ONE Stop: 02/03/17 12:28 Last Admin: 02/03/17 15:08 Dose: 30 ml Cefazolin Sodium (Ancef) Confirm Administered Dose 2 gm .ROUTE .STK-MED ONE Stop: 02/03/17 12:27 Last Admin: 02/03/17 15:03 Dose: 2 gm Cefazolin Sodium (Ancef) Confirm Administered Dose 2 gm .ROUTE .STK-MED ONE Stop: 02/03/17 13:27 Cefazolin Sodium (Ancef) Confirm Administered Dose 1 gm .ROUTE .STK-MED ONE Stop: 02/03/17 13:28 Morphine Sulfate 8 mg/Epinephrine HCl 0.3 mg/Cefuroxime Sodium 750 mg/Ketorolac Tromethamine 30 mg/Sodium Chloride 17.9 ml 0 mg .XX ONETIME ONE Stop: 02/03/17 14:46 Last Admin: 02/03/17 17:51 Dose: Not Given Fentanyl (Sublimaze) Confirm Administered Dose 100 mcg .ROUTE .STK-MED ONE Stop: 02/03/17 13:26 Lactated Ringer's (Ringers, Lactated) 1,000 mls @ 125 mls/hr IV ASDIRECTED [facility] Last Admin: 02/03/17 12:25 Dose: 125 mls/hr Cefazolin Sodium/Dextrose 2 gm (/ Premix) 50 mls @ 100 mls/hr IV Q8H [facility] Stop: 02/04/17 13:59 Last Admin: 02/04/17 18:05 Dose: Not Given Lidocaine HCl (Xylocaine-Mpf 1%) Confirm Administered Dose 4 mls @ as directed .ROUTE .STK-MED ONE Stop: 02/03/17 13:27 Lactated Ringer's (Ringers, Lactated) Confirm Administered Dose 1,000 mls @ as directed .ROUTE .STK-MED ONE Stop: 02/03/17 15:44 Lactated Ringer's (Ringers, Lactated) Confirm Administered Dose 1,000 mls @ as directed .ROUTE .STK-MED ONE Stop: 02/03/17 15:44 Iodine (Iodine 2% Mild Tincture) Confirm Administered Dose 30 ml .ROUTE .STK- MED ONE Stop: 02/03/17 12:28 Last Admin: 02/03/17 15:01 Dose: 18 ml Ketorolac Tromethamine (Toradol) 15 mg IVPUSH Q6H PRN PRN Reason: Pain Last Admin: 02/04/17 14:05 Dose: 15 mg Lidocaine/Sodium Bicarbonate (Buffered Lidocaine 1% In Ns 8.4%) 0.25 ml IV ONETIME PRN PRN Reason: Prior to IV Start Stop: 02/03/17 18:00 Last Admin: 02/03/17 12:24 Dose: 0.25 ml Ondansetron HCl (Zofran) Confirm Administered Dose 4 mg .ROUTE .STK-MED ONE Stop: 02/03/17 13:26 Oxycodone HCl (Oxycodone) 5 mg PO ONETIME ONE Stop: 02/04/17 17:59 Last Admin: 02/04/17 18:08 Dose: 5 mg Propofol (Diprivan 20 Ml) Confirm Administered Dose 200 mg .ROUTE .STK-MED ONE Stop: 02/03/17 13:26 Propofol (Diprivan 20 Ml) Confirm Administered Dose 200 mg .ROUTE .STK-MED ONE Stop: 02/03/17 14:48 Propofol (Diprivan 20 Ml) Confirm Administered Dose 200 mg .ROUTE .STK-MED ONE Stop: 02/03/17 15:25 Tranexamic Acid (Cyklokapron) Confirm Administered Dose 1,000 mg .ROUTE .STK- MED ONE Stop: 02/03/17 12:27 Last Admin: 02/03/17 15:16 Dose: 1,000 mg Vancomycin HCl (Vancomycin) Confirm Administered Dose 1 gm .ROUTE .STK-MED ONE Stop: 02/03/17 12:27 Last Admin: 02/03/17 15:11 Dose: 1 gm - Exam Wound/Incisions: Dressing Dry and Intact General: Alert, Cooperative, No Acute Distress Lungs: Normal Respiratory Effort Extremities: Other (NVS intact. Ameena's negative for BLE.) - Problem List Review Problem List Initiated/Reviewed/Updated: Yes - My Orders Last 24 Hours: Active Orders 24 hr Category Date Time Status Communication Order [RC] ASDIRECTED Care 02/05/17 08:15 Active Overnight Pulse Oximetry [Overnight Pulse Oximetry] [ Care 02/04/17 19:43 Active ] BEDTIME Ready for Discharge [] PER UNIT ROUTINE Care 02/04/17 13:06 Inactive Ready for Discharge [] PER UNIT ROUTINE Care 02/05/17 08:52 Active oxyCODONE Med 02/04/17 19:51 Active 5 mg PO Q6H PRN Medication Orders Amlodipine Besylate (Norvasc) 10 mg PO DAILY [facility] Last Admin: 02/05/17 09:09 Dose: 10 mg Admin: 02/04/17 18:05 Dose: Aspirin (Ecotrin) 325 mg PO BID [facility] Last Admin: 02/05/17 09:09 Dose: 325 mg Admin: 02/04/17 20:05 Dose: 325 mg Admin: 02/04/17 18:04 Dose: Bisacodyl (Dulcolax) 5 mg PO DAILY PRN PRN Reason: Constipation Cholecalciferol (Vitamin D3) 5,000 units PO DAILY [facility] Last Admin: 02/05/17 09:09 Dose: 5,000 units Admin: 02/04/17 18:05 Dose: Cyclobenzaprine HCl (Flexeril) 10 mg PO TID PRN PRN Reason: Spasms Last Admin: 02/05/17 05:09 Dose: 10 mg Admin: 02/04/17 14:05 Dose: 10 mg Admin: 02/04/17 01:23 Dose: 10 mg Dextrose/Water (Dextrose 50% In Water) 50 ml IVPUSH ASDIRECTED PRN PRN Reason: Hypoglycemia Diphenhydramine HCl (Benadryl) 25 mg IVPUSH Q4H PRN PRN Reason: Nausea Diphenhydramine HCl (Benadryl) 25 mg IVPUSH Q6H PRN PRN Reason: Itching Docusate Sodium (Colace) 100 mg PO BID [facility] Last Admin: 02/05/17 09:09 Dose: 100 mg Admin: 02/04/17 20:04 Dose: 100 mg Admin: 02/04/17 18:04 Dose: Admin: 02/03/17 20:09 Dose: 100 mg Fentanyl (Sublimaze) 50 mcg IVPUSH Q5M PRN PRN Reason: PAIN Finasteride (Proscar) 5 mg PO DAILY [facility] Last Admin: 02/05/17 09:09 Dose: 5 mg Admin: 02/04/17 18:05 Dose: Furosemide (Lasix) 60 mg PO DAILY [facility] Last Admin: 02/05/17 09:11 Dose: 60 mg Admin: 02/04/17 18:04 Dose: Insulin Aspart (Novolog) 0 unit SUBCUT QIDACANDBED [facility] PRN Reason: Protocol Last Admin: 02/05/17 07:36 Dose: Admin: 02/04/17 23:02 Dose: Admin: 02/04/17 18:19 Dose: Admin: 02/04/17 18:17 Dose: Admin: 02/04/17 12:08 Dose: Admin: 02/03/17 23:10 Dose: Losartan Potassium (Cozaar) 100 mg PO DAILY [facility] Last Admin: 02/05/17 09:11 Dose: 100 mg Admin: 02/04/17 18:04 Dose: Magnesium Hydroxide (Milk Of Magnesia) 30 ml PO BID PRN PRN Reason: Constipation Last Admin: 02/05/17 05:10 Dose: 30 ml Magnesium Oxide (Magnesium Oxide) 400 mg PO DAILY [facility] Last Admin: 02/05/17 09:09 Dose: 400 mg Admin: 02/04/17 18:04 Dose: Metformin HCl (Glucophage) 1,000 mg PO BIDMEALS [facility] Last Admin: 02/05/17 09:10 Dose: 1,000 mg Admin: 02/04/17 20:03 Dose: 1,000 mg Admin: 02/04/17 18:16 Dose: Admin: 02/03/17 18:17 Dose: 1,000 mg Morphine Sulfate (Morphine) 2 mg IVPUSH Q2H PRN PRN Reason: Breakthrough Pain Naloxone HCl (Narcan) 0.1 mg IVPUSH Q5M PRN PRN Reason: Oversedation Ondansetron HCl (Zofran) 4 mg IVPUSH Q6H PRN PRN Reason: Nausea/Vomiting Oxycodone HCl (Oxycodone) 5 mg PO Q6H PRN PRN Reason: Pain Last Admin: 02/05/17 05:08 Dose: 5 mg Admin: 02/04/17 22:54 Dose: 5 mg Oxycodone/Acetaminophen (Percocet 325-5 Mg) 1 - 2 tab PO Q4H PRN PRN Reason: Pain Last Admin: 02/05/17 09:23 Dose: 2 tab Admin: 02/05/17 00:29 Dose: 2 tab Admin: 02/04/17 17:13 Dose: 2 tab Admin: 02/04/17 01:23 Dose: 2 tab Admin: 02/03/17 19:51 Dose: 2 tab Pantoprazole Sodium (Protonix) 40 mg PO ACBREAKFAST [facility] Last Admin: 02/05/17 05:09 Dose: 40 mg Admin: 02/04/17 18:16 Dose: Potassium Chloride (Klor-Con 10) 20 meq PO BID [facility] Last Admin: 02/05/17 09:09 Dose: 20 meq Admin: 02/04/17 20:05 Dose: 20 meq Admin: 02/04/17 18:04 Dose: Admin: 02/03/17 20:11 Dose: 20 meq Senna (Senna) 8.6 mg PO BID PRN PRN Reason: Constipation Simvastatin (Zocor) 20 mg PO BEDTIME [facility] Last Admin: 02/04/17 20:05 Dose: 20 mg Admin: 02/03/17 20:10 Dose: 20 mg Sodium Chloride (Saline Flush) 10 ml FLUSH ASDIRECTED PRN PRN Reason: Keep Vein Open - Assessment Assessment (Free Text/Narrative):: POD#1 - left TKA - Plan Plan (Free Text/Narrative):: 1. Discharge to home on POD#1 if inpatient therapy goals met and pt's pain controlled. 2. 325mg ASA BID, frequent mobility, TEDs. 3. Hgb 13.5. The pt's case was discussed with Dr. Houston.
--- NOTE | 2017-02-05 10:52 | PCM.SURGPN ---
- General Info Date of Service: 02/05/17 POD#: 2 Functional Status: Reports: Pain Controlled, Tolerating Diet, Ambulating, Urinating, Incentive Spirometry, Other (The pt's pain is under better control.) - Patient Data Vitals - Most Recent: Last Vital Signs Temp 99.0 F 02/05/17 07:30 Pulse 93 02/05/17 07:30 Resp 16 02/05/17 07:30 BP 145/73 H 02/05/17 09:11 Pulse Ox 92 L 02/05/17 07:30 Weight - Most Recent: 285 lb 3.2 oz I&O - Last 24 Hours: Intake & Output 02/04/17 02/05/17 02/05/17 22:59 06:59 14:59 Intake Total 1110 240 0 Output Total 800 600 Balance 310 -360 0 Lab Results Last 24 Hrs: Laboratory Results - last 24 hr 02/04/17 02/04/17 02/04/17 Range/Units 04:50 04:50 05:09 WBC 9.89 H (4.23-9.07) K/mm3 RBC 4.86 (4.63-6.08) M/mm3 Hgb 13.5 L (13.7-17.5) gm/L Hct 41.5 (40.1-51.0) % MCV 85.4 (79.0-92.2) fl MCH 27.8 (25.7-32.2) pg MCHC 32.5 (32.2-35.5) g/dl RDW Std Deviation 43.8 (35.1-43.9) fL Plt Count 161 L (163-337) K/mm3 MPV 12.2 (9.4-12.3) fl Neut % (Auto) 71.4 H (34.0-67.9) % Lymph % (Auto) 16.3 L (21.8-53.1) % Kay % (Auto) 10.7 (5.3-12.2) % Eos % (Auto) 1.3 (0.8-7.0) Baso % (Auto) 0.1 (0.1-1.2) % Neut # (Auto) 7.06 H (1.78-5.38) K/mm3 Lymph # (Auto) 1.61 (1.32-3.57) K/mm3 Kay # (Auto) 1.06 H (0.30-0.82) K/mm3 Eos # (Auto) 0.13 (0.04-0.54) K/mm3 Baso # (Auto) 0.01 (0.01-0.08) K/mm3 Sodium 140 (136-145) mEq/L Potassium 3.5 (3.5-5.1) mEq/L Chloride 103 (98-107) mEq/L Carbon Dioxide 30 (21-32) mEq/L Anion Gap 10.5 (5-15) BUN 14 (7-18) mg/dL Creatinine 0.9 (0.7-1.3) mg/dL Est Cr Clr Drug Dosing 84.49 mL/min Estimated GFR (MDRD) > 60 (>60) mL/min BUN/Creatinine Ratio 15.6 (14-18) Glucose 125 H (80-115) mg/dL POC Glucose 116 H (80-115) mg/dL Calcium 8.5 (8.5-10.1) mg/dL Total Bilirubin 0.7 (0.2-1.0) mg/dL AST 18 (15-37) U/L ALT 27 (16-63) U/L Alkaline Phosphatase 57 (46-116) U/L Total Protein 6.9 (6.4-8.2) g/dl Albumin 3.2 L (3.4-5.0) g/dl Globulin 3.7 gm/dL Albumin/Globulin Ratio 0.9 L (1-2) 02/04/17 02/04/17 02/05/17 Range/Units 10:06 22:45 04:42 WBC (4.23-9.07) K/mm3 RBC (4.63-6.08) M/mm3 Hgb (13.7-17.5) gm/L Hct (40.1-51.0) % MCV (79.0-92.2) fl MCH (25.7-32.2) pg MCHC (32.2-35.5) g/dl RDW Std Deviation (35.1-43.9) fL Plt Count (163-337) K/mm3 MPV (9.4-12.3) fl Neut % (Auto) (34.0-67.9) % Lymph % (Auto) (21.8-53.1) % Kay % (Auto) (5.3-12.2) % Eos % (Auto) (0.8-7.0) Baso % (Auto) (0.1-1.2) % Neut # (Auto) (1.78-5.38) K/mm3 Lymph # (Auto) (1.32-3.57) K/mm3 Kay # (Auto) (0.30-0.82) K/mm3 Eos # (Auto) (0.04-0.54) K/mm3 Baso # (Auto) (0.01-0.08) K/mm3 Sodium (136-145) mEq/L Potassium (3.5-5.1) mEq/L Chloride (98-107) mEq/L Carbon Dioxide (21-32) mEq/L Anion Gap (5-15) BUN (7-18) mg/dL Creatinine (0.7-1.3) mg/dL Est Cr Clr Drug Dosing mL/min Estimated GFR (MDRD) (>60) mL/min BUN/Creatinine Ratio (14-18) Glucose (80-115) mg/dL POC Glucose 130 H 144 H 145 H (80-115) mg/dL Calcium (8.5-10.1) mg/dL Total Bilirubin (0.2-1.0) mg/dL AST (15-37) U/L ALT (16-63) U/L Alkaline Phosphatase (46-116) U/L Total Protein (6.4-8.2) g/dl Albumin (3.4-5.0) g/dl Globulin gm/dL Albumin/Globulin Ratio (1-2) Med Orders - Current: Current Medications Amlodipine Besylate (Norvasc) 10 mg PO DAILY [facility] Last Admin: 02/05/17 09:09 Dose: 10 mg Aspirin (Ecotrin) 325 mg PO BID [facility] Last Admin: 02/05/17 09:09 Dose: 325 mg Bisacodyl (Dulcolax) 5 mg PO DAILY PRN PRN Reason: Constipation Cholecalciferol (Vitamin D3) 5,000 units PO DAILY [facility] Last Admin: 02/05/17 09:09 Dose: 5,000 units Cyclobenzaprine HCl (Flexeril) 10 mg PO TID PRN PRN Reason: Spasms Last Admin: 02/05/17 05:09 Dose: 10 mg Dextrose/Water (Dextrose 50% In Water) 50 ml IVPUSH ASDIRECTED PRN PRN Reason: Hypoglycemia Diphenhydramine HCl (Benadryl) 25 mg IVPUSH Q4H PRN PRN Reason: Nausea Diphenhydramine HCl (Benadryl) 25 mg IVPUSH Q6H PRN PRN Reason: Itching Docusate Sodium (Colace) 100 mg PO BID [facility] Last Admin: 02/05/17 09:09 Dose: 100 mg Fentanyl (Sublimaze) 50 mcg IVPUSH Q5M PRN PRN Reason: PAIN Finasteride (Proscar) 5 mg PO DAILY [facility] Last Admin: 02/05/17 09:09 Dose: 5 mg Furosemide (Lasix) 60 mg PO DAILY [facility] Last Admin: 02/05/17 09:11 Dose: 60 mg Insulin Aspart (Novolog) 0 unit SUBCUT QIDACANDBED [facility] PRN Reason: Protocol Last Admin: 02/05/17 07:36 Dose: Not Given Losartan Potassium (Cozaar) 100 mg PO DAILY [facility] Last Admin: 02/05/17 09:11 Dose: 100 mg Magnesium Hydroxide (Milk Of Magnesia) 30 ml PO BID PRN PRN Reason: Constipation Last Admin: 02/05/17 05:10 Dose: 30 ml Magnesium Oxide (Magnesium Oxide) 400 mg PO DAILY [facility] Last Admin: 02/05/17 09:09 Dose: 400 mg Metformin HCl (Glucophage) 1,000 mg PO BIDMEALS [facility] Last Admin: 02/05/17 09:10 Dose: 1,000 mg Morphine Sulfate (Morphine) 2 mg IVPUSH Q2H PRN PRN Reason: Breakthrough Pain Naloxone HCl (Narcan) 0.1 mg IVPUSH Q5M PRN PRN Reason: Oversedation Ondansetron HCl (Zofran) 4 mg IVPUSH Q6H PRN PRN Reason: Nausea/Vomiting Oxycodone HCl (Oxycodone) 5 mg PO Q6H PRN PRN Reason: Pain Last Admin: 02/05/17 05:08 Dose: 5 mg Oxycodone/Acetaminophen (Percocet 325-5 Mg) 1 - 2 tab PO Q4H PRN PRN Reason: Pain Last Admin: 02/05/17 09:23 Dose: 2 tab Pantoprazole Sodium (Protonix) 40 mg PO ACBREAKFAST [facility] Last Admin: 02/05/17 05:09 Dose: 40 mg Potassium Chloride (Klor-Con 10) 20 meq PO BID [facility] Last Admin: 02/05/17 09:09 Dose: 20 meq Senna (Senna) 8.6 mg PO BID PRN PRN Reason: Constipation Simvastatin (Zocor) 20 mg PO BEDTIME [facility] Last Admin: 02/04/17 20:05 Dose: 20 mg Sodium Chloride (Saline Flush) 10 ml FLUSH ASDIRECTED PRN PRN Reason: Keep Vein Open Discontinued Medications Bisacodyl (Dulcolax) 10 mg RECTAL ONETIME ONE Stop: 02/05/17 10:21 Last Admin: 02/05/17 10:36 Dose: 10 mg Bupivacaine HCl (Marcaine 0.25%) Confirm Administered Dose 30 ml .ROUTE .STK- MED ONE Stop: 02/03/17 12:28 Last Admin: 02/03/17 15:08 Dose: 30 ml Cefazolin Sodium (Ancef) Confirm Administered Dose 2 gm .ROUTE .STK-MED ONE Stop: 02/03/17 12:27 Last Admin: 02/03/17 15:03 Dose: 2 gm Cefazolin Sodium (Ancef) Confirm Administered Dose 2 gm .ROUTE .STK-MED ONE Stop: 02/03/17 13:27 Cefazolin Sodium (Ancef) Confirm Administered Dose 1 gm .ROUTE .STK-MED ONE Stop: 02/03/17 13:28 Morphine Sulfate 8 mg/Epinephrine HCl 0.3 mg/Cefuroxime Sodium 750 mg/Ketorolac Tromethamine 30 mg/Sodium Chloride 17.9 ml 0 mg .XX ONETIME ONE Stop: 02/03/17 14:46 Last Admin: 02/03/17 17:51 Dose: Not Given Fentanyl (Sublimaze) Confirm Administered Dose 100 mcg .ROUTE .STK-MED ONE Stop: 02/03/17 13:26 Lactated Ringer's (Ringers, Lactated) 1,000 mls @ 125 mls/hr IV ASDIRECTED [facility] Last Admin: 02/03/17 12:25 Dose: 125 mls/hr Cefazolin Sodium/Dextrose 2 gm (/ Premix) 50 mls @ 100 mls/hr IV Q8H [facility] Stop: 02/04/17 13:59 Last Admin: 02/04/17 18:05 Dose: Not Given Lidocaine HCl (Xylocaine-Mpf 1%) Confirm Administered Dose 4 mls @ as directed .ROUTE .STK-MED ONE Stop: 02/03/17 13:27 Lactated Ringer's (Ringers, Lactated) Confirm Administered Dose 1,000 mls @ as directed .ROUTE .STK-MED ONE Stop: 02/03/17 15:44 Lactated Ringer's (Ringers, Lactated) Confirm Administered Dose 1,000 mls @ as directed .ROUTE .STK-MED ONE Stop: 02/03/17 15:44 Iodine (Iodine 2% Mild Tincture) Confirm Administered Dose 30 ml .ROUTE .STK- MED ONE Stop: 02/03/17 12:28 Last Admin: 02/03/17 15:01 Dose: 18 ml Ketorolac Tromethamine (Toradol) 15 mg IVPUSH Q6H PRN PRN Reason: Pain Last Admin: 02/04/17 14:05 Dose: 15 mg Lidocaine/Sodium Bicarbonate (Buffered Lidocaine 1% In Ns 8.4%) 0.25 ml IV ONETIME PRN PRN Reason: Prior to IV Start Stop: 02/03/17 18:00 Last Admin: 02/03/17 12:24 Dose: 0.25 ml Ondansetron HCl (Zofran) Confirm Administered Dose 4 mg .ROUTE .STK-MED ONE Stop: 02/03/17 13:26 Oxycodone HCl (Oxycodone) 5 mg PO ONETIME ONE Stop: 02/04/17 17:59 Last Admin: 02/04/17 18:08 Dose: 5 mg Propofol (Diprivan 20 Ml) Confirm Administered Dose 200 mg .ROUTE .STK-MED ONE Stop: 02/03/17 13:26 Propofol (Diprivan 20 Ml) Confirm Administered Dose 200 mg .ROUTE .STK-MED ONE Stop: 02/03/17 14:48 Propofol (Diprivan 20 Ml) Confirm Administered Dose 200 mg .ROUTE .STK-MED ONE Stop: 02/03/17 15:25 Tranexamic Acid (Cyklokapron) Confirm Administered Dose 1,000 mg .ROUTE .STK- MED ONE Stop: 02/03/17 12:27 Last Admin: 02/03/17 15:16 Dose: 1,000 mg Vancomycin HCl (Vancomycin) Confirm Administered Dose 1 gm .ROUTE .STK-MED ONE Stop: 02/03/17 12:27 Last Admin: 02/03/17 15:11 Dose: 1 gm - Exam Wound/Incisions: Dressing Dry and Intact General: Alert, Cooperative, No Acute Distress Lungs: Normal Respiratory Effort Extremities: Other (Assistance with SLR required LLE. NVS intact for BLE. Ameena's negative.) - Problem List Review Problem List Initiated/Reviewed/Updated: Yes - My Orders Last 24 Hours: Active Orders 24 hr Category Date Time Status Communication Order [RC] ASDIRECTED Care 02/05/17 08:15 Active Overnight Pulse Oximetry [Overnight Pulse Oximetry] [ Care 02/04/17 19:43 Active ] BEDTIME Ready for Discharge [] PER UNIT ROUTINE Care 02/04/17 13:06 Inactive Ready for Discharge [] PER UNIT ROUTINE Care 02/05/17 08:52 Active oxyCODONE Med 02/04/17 19:51 Active 5 mg PO Q6H PRN Medication Orders Amlodipine Besylate (Norvasc) 10 mg PO DAILY [facility] Last Admin: 02/05/17 09:09 Dose: 10 mg Admin: 02/04/17 18:05 Dose: Aspirin (Ecotrin) 325 mg PO BID [facility] Last Admin: 02/05/17 09:09 Dose: 325 mg Admin: 02/04/17 20:05 Dose: 325 mg Admin: 02/04/17 18:04 Dose: Bisacodyl (Dulcolax) 5 mg PO DAILY PRN PRN Reason: Constipation Cholecalciferol (Vitamin D3) 5,000 units PO DAILY [facility] Last Admin: 02/05/17 09:09 Dose: 5,000 units Admin: 02/04/17 18:05 Dose: Cyclobenzaprine HCl (Flexeril) 10 mg PO TID PRN PRN Reason: Spasms Last Admin: 02/05/17 05:09 Dose: 10 mg Admin: 02/04/17 14:05 Dose: 10 mg Admin: 02/04/17 01:23 Dose: 10 mg Dextrose/Water (Dextrose 50% In Water) 50 ml IVPUSH ASDIRECTED PRN PRN Reason: Hypoglycemia Diphenhydramine HCl (Benadryl) 25 mg IVPUSH Q4H PRN PRN Reason: Nausea Diphenhydramine HCl (Benadryl) 25 mg IVPUSH Q6H PRN PRN Reason: Itching Docusate Sodium (Colace) 100 mg PO BID [facility] Last Admin: 02/05/17 09:09 Dose: 100 mg Admin: 02/04/17 20:04 Dose: 100 mg Admin: 02/04/17 18:04 Dose: Admin: 02/03/17 20:09 Dose: 100 mg Fentanyl (Sublimaze) 50 mcg IVPUSH Q5M PRN PRN Reason: PAIN Finasteride (Proscar) 5 mg PO DAILY [facility] Last Admin: 02/05/17 09:09 Dose: 5 mg Admin: 02/04/17 18:05 Dose: Furosemide (Lasix) 60 mg PO DAILY [facility] Last Admin: 02/05/17 09:11 Dose: 60 mg Admin: 02/04/17 18:04 Dose: Insulin Aspart (Novolog) 0 unit SUBCUT QIDACANDBED [facility] PRN Reason: Protocol Last Admin: 02/05/17 07:36 Dose: Admin: 02/04/17 23:02 Dose: Admin: 02/04/17 18:19 Dose: Admin: 02/04/17 18:17 Dose: Admin: 02/04/17 12:08 Dose: Admin: 02/03/17 23:10 Dose: Losartan Potassium (Cozaar) 100 mg PO DAILY [facility] Last Admin: 02/05/17 09:11 Dose: 100 mg Admin: 02/04/17 18:04 Dose: Magnesium Hydroxide (Milk Of Magnesia) 30 ml PO BID PRN PRN Reason: Constipation Last Admin: 02/05/17 05:10 Dose: 30 ml Magnesium Oxide (Magnesium Oxide) 400 mg PO DAILY [facility] Last Admin: 02/05/17 09:09 Dose: 400 mg Admin: 02/04/17 18:04 Dose: Metformin HCl (Glucophage) 1,000 mg PO BIDMEALS [facility] Last Admin: 02/05/17 09:10 Dose: 1,000 mg Admin: 02/04/17 20:03 Dose: 1,000 mg Admin: 02/04/17 18:16 Dose: Admin: 02/03/17 18:17 Dose: 1,000 mg Morphine Sulfate (Morphine) 2 mg IVPUSH Q2H PRN PRN Reason: Breakthrough Pain Naloxone HCl (Narcan) 0.1 mg IVPUSH Q5M PRN PRN Reason: Oversedation Ondansetron HCl (Zofran) 4 mg IVPUSH Q6H PRN PRN Reason: Nausea/Vomiting Oxycodone HCl (Oxycodone) 5 mg PO Q6H PRN PRN Reason: Pain Last Admin: 02/05/17 05:08 Dose: 5 mg Admin: 02/04/17 22:54 Dose: 5 mg Oxycodone/Acetaminophen (Percocet 325-5 Mg) 1 - 2 tab PO Q4H PRN PRN Reason: Pain Last Admin: 02/05/17 09:23 Dose: 2 tab Admin: 02/05/17 00:29 Dose: 2 tab Admin: 02/04/17 17:13 Dose: 2 tab Admin: 02/04/17 01:23 Dose: 2 tab Admin: 02/03/17 19:51 Dose: 2 tab Pantoprazole Sodium (Protonix) 40 mg PO ACBREAKFAST [facility] Last Admin: 02/05/17 05:09 Dose: 40 mg Admin: 02/04/17 18:16 Dose: Potassium Chloride (Klor-Con 10) 20 meq PO BID [facility] Last Admin: 02/05/17 09:09 Dose: 20 meq Admin: 02/04/17 20:05 Dose: 20 meq Admin: 02/04/17 18:04 Dose: Admin: 02/03/17 20:11 Dose: 20 meq Senna (Senna) 8.6 mg PO BID PRN PRN Reason: Constipation Simvastatin (Zocor) 20 mg PO BEDTIME [facility] Last Admin: 02/04/17 20:05 Dose: 20 mg Admin: 02/03/17 20:10 Dose: 20 mg Sodium Chloride (Saline Flush) 10 ml FLUSH ASDIRECTED PRN PRN Reason: Keep Vein Open - Assessment Assessment (Free Text/Narrative):: POD#2 - Left TKA - Plan Plan (Free Text/Narrative):: 1. Discharge to home today. 2. Percocet and oxycodone for pain management. 3. 325mg ASA BID, TEDs, frequent mobility. The pt's case was discussed with Dr. Houston.
--- NOTE | 2017-02-06 06:53 | PCM.DCSUM1 ---
Discharge Summary - Hospital Course Brief History: Aditya is a 66 yo male who underwent left TKA with Dr. Houston on . The procedure was completed under spinal anesthesia with MAC. The pt tolerated the procedure well and was admitted to the Medical-Surgical Unit. The pt received Ancef laurel-operatively. He participated in P.T. and O.T. and progressed slowly. He was allowed to WBAT and used a FWW for mobility. The pt' s surgical wound was dressed with a Mepilex dressing and remained clean and dry. On POD#1, the pt was started on 325mg ASA BID for VTE prophylaxis. The pt used TEDs and SCDs also. On POD#1, the pt's hemoglobin was 13.5. Medial management was provided by the Hospitalist service. The pt's blood sugars were closely monitored. The pt's hospital course was remarkable for difficulty with pain management requiring the pt to remain in Hospital until POD#2. On POD#2, the pt was deemed appropriate for discharge to home. - Discharge Data Discharge Date: 02/05/17 Discharge Disposition: Home, Self-Care 01 Condition: Good - Patient Summary/Data Consults: Consultations 02/03/17 07:03 OT Evaluation and Treatment [CONS] Routine PT Evaluation and Treatment [CONS] Routine - Patient Instructions Diet: Drink 8-10+ Glasses/Day, Diabetic Diet Activity: Apply Ice, As Tolerated, Elevate Extremity, Full Weight Bearing Driving: Do Not Drive Showering/Bathing: May Shower Wound/Incision Care: Keep Operative Site/Wound Site Clean and Dry, Do NOT Change Dressing Notify Provider of: Fever, Increased Pain, Swelling and Redness, Drainage, Nausea and/or Vomiting Other/Special Instructions: Please get up and moving around every hour while awake. This helps to prevent blood clots. Please take 325mg aspirin twice daily - this also helps to prevent blood clots. The medication is being used for blood clot prevention and not for pain control, so please use the medication twice daily as directed. Please wear the AKASH hose during the day and you may remove them at night. Please schedule for P.T. Complete the P.T. exercises and stretches that were instructed in the Hospital. Please use the pain medication and muscle relaxant as needed. The medication may cause drowsiness and/or constipation. You could use a stool softener like docusate sodium or Colace 100mg twice daily and/or a laxative like Miralax daily for constipation. Contact your primary care provider for further instructions if you are constipated. Please schedule an appointment with your primary care provider for 'routine post-op care'. Use the incentive spirometer often. Please place ice to the knee often. Please elevate the limb to decrease swelling. Keep the Mepilex dressing in place until follow-up. Please call [phone] with questions or concerns. - Discharge Plan Prescriptions/Med Rec: Acetaminophen/oxyCODONE [Percocet 325-5 MG] 1 - 2 tab PO Q4H PRN #60 tablet PRN Reason: Pain Aspirin [Ecotrin] 325 mg PO BID #70 tab.ec Cyclobenzaprine [Flexeril] 10 mg PO TID PRN #40 tablet PRN Reason: Spasms oxyCODONE 5 mg PO Q6H PRN #30 tablet PRN Reason: Pain Home Medications: Home Meds amLODIPine [Norvasc] 10 mg PO DAILY 10/04/15 [History] atorvaSTATin [Lipitor] 20 mg PO BEDTIME 10/04/15 [History] metFORMIN [Glucophage] 1,000 mg PO BID 10/04/15 [History] Cholecalciferol (Vitamin D3) [Vitamin D] 5,000 unit PO DAILY 01/31/17 [History] Finasteride 5 mg PO DAILY 01/31/17 [History] Omeprazole 20 mg PO Q48H 01/31/17 [History] Potassium Chloride 20 meq PO BID 01/31/17 [History] Acetaminophen/Diphenhydramine [Tylenol Pm Ex-Strength Caplet] 2 tab PO ASDIRECTED PRN 02/03/17 [History] Furosemide 60 mg PO DAILY 02/03/17 [History] Losartan Potassium 100 mg PO DAILY 02/03/17 [History] Magnesium Oxide 400 mg PO DAILY 02/03/17 [History] Acetaminophen/oxyCODONE [Percocet 325-5 MG] 1 - 2 tab PO Q4H PRN #60 tablet [Rx] Aspirin [Ecotrin] 325 mg PO BID #70 tab.ec 02/04/17 [Rx] Cyclobenzaprine [Flexeril] 10 mg PO TID PRN #40 tablet 02/04/17 [Rx] Docusate Sodium [Colace] 100 mg PO BID cap 02/04/17 [Rx] oxyCODONE 5 mg PO Q6H PRN #30 tablet 02/05/17 [Rx] Patient Handouts: Total Knee Replacement, Care After, [id number], Total Knee Replacement, [id number] Referrals: Kerri Norris DO [Ordering Only Provider] - (Please call and make own follow- up appointment with Dr. Norris within one week. ) Azul Landeros PA-C [Physician Ethernet Network Architect] - (1. Follow-up with Azul Landeros PA-C on February 12, 2017 at 2:45 pm. 2. Follow-up with ANIL Ayala on February 18, 2017 at 8:15 am.) - Patient Data Vitals - Most Recent: Last Vital Signs Temp 99.0 F 02/05/17 07:30 Pulse 93 02/05/17 07:30 Resp 16 02/05/17 07:30 BP 145/73 H 02/05/17 09:11 Pulse Ox 92 L 02/05/17 07:30 Weight - Most Recent: 285 lb 3.2 oz I&O - Last 24 hours: Intake & Output 02/05/17 02/05/17 02/06/17 14:59 22:59 06:59 Intake Total 0 Balance 0 Med Orders - Current: Current Medications Discontinued Medications Amlodipine Besylate (Norvasc) 10 mg PO DAILY [facility] Last Admin: 02/05/17 09:09 Dose: 10 mg Aspirin (Ecotrin) 325 mg PO BID [facility] Last Admin: 02/05/17 09:09 Dose: 325 mg Bisacodyl (Dulcolax) 5 mg PO DAILY PRN PRN Reason: Constipation Bisacodyl (Dulcolax) 10 mg RECTAL ONETIME ONE Stop: 02/05/17 10:21 Last Admin: 02/05/17 10:36 Dose: 10 mg Bupivacaine HCl (Marcaine 0.25%) Confirm Administered Dose 30 ml .ROUTE .STK- MED ONE Stop: 02/03/17 12:28 Last Admin: 02/03/17 15:08 Dose: 30 ml Cefazolin Sodium (Ancef) Confirm Administered Dose 2 gm .ROUTE .STK-MED ONE Stop: 02/03/17 12:27 Last Admin: 02/03/17 15:03 Dose: 2 gm Cefazolin Sodium (Ancef) Confirm Administered Dose 2 gm .ROUTE .K-MED ONE Stop: 02/03/17 13:27 Cefazolin Sodium (Ancef) Confirm Administered Dose 1 gm .ROUTE .[facility] ONE Stop: 02/03/17 13:28 Cholecalciferol (Vitamin D3) 5,000 units PO DAILY [facility] Last Admin: 02/05/17 09:09 Dose: 5,000 units Morphine Sulfate 8 mg/Epinephrine HCl 0.3 mg/Cefuroxime Sodium 750 mg/Ketorolac Tromethamine 30 mg/Sodium Chloride 17.9 ml 0 mg .XX ONETIME ONE Stop: 02/03/17 14:46 Last Admin: 02/03/17 17:51 Dose: Not Given Cyclobenzaprine HCl (Flexeril) 10 mg PO TID PRN PRN Reason: Spasms Last Admin: 02/05/17 05:09 Dose: 10 mg Dextrose/Water (Dextrose 50% In Water) 50 ml IVPUSH ASDIRECTED PRN PRN Reason: Hypoglycemia Diphenhydramine HCl (Benadryl) 25 mg IVPUSH Q4H PRN PRN Reason: Nausea Diphenhydramine HCl (Benadryl) 25 mg IVPUSH Q6H PRN PRN Reason: Itching Docusate Sodium (Colace) 100 mg PO BID [facility] Last Admin: 02/05/17 09:09 Dose: 100 mg Fentanyl (Sublimaze) Confirm Administered Dose 100 mcg .ROUTE .K-MED ONE Stop: 02/03/17 13:26 Fentanyl (Sublimaze) 50 mcg IVPUSH Q5M PRN PRN Reason: PAIN Finasteride (Proscar) 5 mg PO DAILY [facility] Last Admin: 02/05/17 09:09 Dose: 5 mg Furosemide (Lasix) 60 mg PO DAILY [facility] Last Admin: 02/05/17 09:11 Dose: 60 mg Lactated Ringer's (Ringers, Lactated) 1,000 mls @ 125 mls/hr IV ASDIRECTED [facility] Last Admin: 02/03/17 12:25 Dose: 125 mls/hr Cefazolin Sodium/Dextrose 2 gm (/ Premix) 50 mls @ 100 mls/hr IV Q8H [facility] Stop: 02/04/17 13:59 Last Admin: 02/04/17 18:05 Dose: Not Given Lidocaine HCl (Xylocaine-Mpf 1%) Confirm Administered Dose 4 mls @ as directed .ROUTE .[facility] ONE Stop: 02/03/17 13:27 Lactated Ringer's (Ringers, Lactated) Confirm Administered Dose 1,000 mls @ as directed .ROUTE .[facility] ONE Stop: 02/03/17 15:44 Lactated Ringer's (Ringers, Lactated) Confirm Administered Dose 1,000 mls @ as directed .ROUTE .[facility] ONE Stop: 02/03/17 15:44 Insulin Aspart (Novolog) 0 unit SUBCUT QIDACANDBED [facility] PRN Reason: Protocol Last Admin: 02/05/17 07:36 Dose: Not Given Iodine (Iodine 2% Mild Tincture) Confirm Administered Dose 30 ml .[address] .[facility] ONE Stop: 02/03/17 12:28 Last Admin: 02/03/17 15:01 Dose: 18 ml Ketorolac Tromethamine (Toradol) 15 mg IVPUSH Q6H PRN PRN Reason: Pain Last Admin: 02/04/17 14:05 Dose: 15 mg Lidocaine/Sodium Bicarbonate (Buffered Lidocaine 1% In Ns 8.4%) 0.25 ml IV ONETIME PRN PRN Reason: Prior to IV Start Stop: 02/03/17 18:00 Last Admin: 02/03/17 12:24 Dose: 0.25 ml Losartan Potassium (Cozaar) 100 mg PO DAILY [facility] Last Admin: 02/05/17 09:11 Dose: 100 mg Magnesium Hydroxide (Milk Of Magnesia) 30 ml PO BID PRN PRN Reason: Constipation Last Admin: 02/05/17 05:10 Dose: 30 ml Magnesium Oxide (Magnesium Oxide) 400 mg PO DAILY [facility] Last Admin: 02/05/17 09:09 Dose: 400 mg Metformin HCl (Glucophage) 1,000 mg PO BIDMEALS [facility] Last Admin: 02/05/17 09:10 Dose: 1,000 mg Morphine Sulfate (Morphine) 2 mg IVPUSH Q2H PRN PRN Reason: Breakthrough Pain Naloxone HCl (Narcan) 0.1 mg IVPUSH Q5M PRN PRN Reason: Oversedation Ondansetron HCl (Zofran) 4 mg IVPUSH Q6H PRN PRN Reason: Nausea/Vomiting Ondansetron HCl (Zofran) Confirm Administered Dose 4 mg .ROUTE .STK-MED ONE Stop: 02/03/17 13:26 Oxycodone HCl (Oxycodone) 5 mg PO ONETIME ONE Stop: 02/04/17 17:59 Last Admin: 02/04/17 18:08 Dose: 5 mg Oxycodone HCl (Oxycodone) 5 mg PO Q6H PRN PRN Reason: Pain Last Admin: 02/05/17 05:08 Dose: 5 mg Oxycodone/Acetaminophen (Percocet 325-5 Mg) 1 - 2 tab PO Q4H PRN PRN Reason: Pain Last Admin: 02/05/17 09:23 Dose: 2 tab Pantoprazole Sodium (Protonix) 40 mg PO ACBREAKFAST [facility] Last Admin: 02/05/17 05:09 Dose: 40 mg Potassium Chloride (Klor-Con 10) 20 meq PO BID [facility] Last Admin: 02/05/17 09:09 Dose: 20 meq Propofol (Diprivan 20 Ml) Confirm Administered Dose 200 mg .ROUTE .STK-MED ONE Stop: 02/03/17 13:26 Propofol (Diprivan 20 Ml) Confirm Administered Dose 200 mg .ROUTE .STK-MED ONE Stop: 02/03/17 14:48 Propofol (Diprivan 20 Ml) Confirm Administered Dose 200 mg .ROUTE .STK-MED ONE Stop: 02/03/17 15:25 Senna (Senna) 8.6 mg PO BID PRN PRN Reason: Constipation Simvastatin (Zocor) 20 mg PO BEDTIME [facility] Last Admin: 02/04/17 20:05 Dose: 20 mg Sodium Chloride (Saline Flush) 10 ml FLUSH ASDIRECTED PRN PRN Reason: Keep Vein Open Tranexamic Acid (Cyklokapron) Confirm Administered Dose 1,000 mg .ROUTE .STK- MED ONE Stop: 02/03/17 12:27 Last Admin: 02/03/17 15:16 Dose: 1,000 mg Vancomycin HCl (Vancomycin) Confirm Administered Dose 1 gm .ROUTE .STK-MED ONE Stop: 02/03/17 12:27 Last Admin: 02/03/17 15:11 Dose: 1 gm *Q Meaningful Use (DIS) - VTE *Q VTE Criteria *Q: - Stroke *Q Stroke Criteria *Q: - AMI *Q AMI Criteria *Q:
--- NOTE | 2017-02-06 14:04 | PCM.OPNOTE ---
- General Post-Op/Procedure Note Date of Surgery/Procedure: 02/03/17 Operative Procedure(s): left total knee arthroplasty Pre Op Diagnosis: left knee osteoarthrosis Post-Op Diagnosis: Same Anesthesia Technique: Local, MAC, Spinal Primary Surgeon: Jasbir Houston Anesthesia Provider: Dane Watson Balance Wheel Hand Filer: Azul Landeros Balance Wheel Hand Filer: Leah Mckeon EBL in mLs: 350 Complications: None Condition: Good
--- NOTE | 2017-02-06 14:34 | OR ---
DATE OF OPERATION: 02/03/2017 SURGEON: Jasbir Houston MD OPERATION PERFORMED: Left total knee arthroplasty. PREOPERATIVE DIAGNOSIS: Left knee osteoarthrosis. POSTOPERATIVE DIAGNOSIS: Left knee osteoarthrosis. ANESTHESIA: Local MAC with spinal. ANESTHESIA PROVIDER: Dane Watson CRNA. YOUTH TEACHER: Azul Landeros PA-C and Leah Mckeon LPN. ESTIMATED BLOOD LOSS: 350 mL COMPLICATIONS: None. CONDITION: Stable. IMPLANTS: 1. Jonathan size 7 press-fit PS femur. 2. Jonathan size 6 press-fit tibia. 3. Jonathan size 6 9-mm PS X3 polyethylene. 4. Mansfield size 35 x 10 mm press-fit patella. DESCRIPTION OF PROCEDURE: The patient was identified in the preop holding area. Proper site was marked and identified by the surgeon. The patient was taken back to the operating theater. After adequate anesthesia, the patient's left lower extremity had a nonsterile tourniquet applied and it was then sterilely prepped and draped in the usual sterile fashion. OR timeout was performed. The patient received 2 g IV Ancef. At this time, left lower extremity was exsanguinated. Tourniquet was insufflated to 300 mmHg. Standard medial parapatellar incision was made. Medial parapatellar arthrotomy was created. Deep fibers of the MCL were raised and anterior fat pad was resected. At this time, attention was turned to the patella. Patella measured at 24, it was resected to a 14 for a 35 x 10 mm patella. Drill holes were then drilled and found to be in adequate position. The drill was then drilled in the distal femur and the intramedullary distal femoral cutting guide was then placed. 8 mm was resected off the distal femur and was found to be an adequate resection. Sizing guide was placed. It was found to be a size 7 press-fit PS femur that was shown on the implant record at the beginning of this dictation. The drill holes were drilled for the epicondylar axis using Whitesides line and epicondyles as reference. At this time, the 4-in-1 cutting block was placed. An anterior posterior and anterior and posterior chamfer cuts were then completed. The correct size box cut was then placed and the box cut was completed and found to be an adequate resection. Attention was turned to the tibia. The posterior medial lateral retractors were placed. The extramedullary tibial guide was placed. It was placed in the old footprint of the ACL. It was aligned with the center of the ankle and 0 degrees of slope, 9 mm was then resected off the unaffected lateral side. There was found to be an acceptable reduction. At this time, posterior osteophytes were removed along with medial and lateral meniscus. A trial implant was placed with a correct sized tibia that was mentioned at the beginning of the dictation. A size 6 9-mm PS X3 polyethylene was then placed. The patient's knee was brought through range of motion. The patella was tracking centrally and was stable to varus and valgus stress. Alignment was found to be roughly at 0 degrees. The tibia was stamped and drilled in proper rotation. The universal tibial base plate was impacted in place. Next, the size 7 press-fit PS femur impacted into place and the size 6 9-mm PS X3 polyethylene was placed. The patient's knee was brought into full extension. The patella was then press-fit in place at this time. Tourniquet was deflated. One liter dilute Betadine solution was irrigated through the knee along with 3 L of pulse lavage irrigation with Ancef. Periarticular injection was then completed. The patient's knee was brought through a range of motion. Knee was found to be stable to varus valgus stress, the patella was tracking centrally with full range of motion. At this time, a #2 barbed suture was used for closure of the medial parapatellar arthrotomy. Topical tranexamic acid was placed. 2-0 Vicryl was used subcutaneously, a running 3-0 Monocryl was used subcuticularly. The patient tolerated the procedure well and was sent to the PACU in stable condition. WILMER /[id number] LAURIE
== END 2017-02-05 11:00 | disposition home or self-care (01) | DRG 470 ==
LOC: JD.MS 11:39
PROVIDERS: ADMIT Orthopaedic Surgery; ATTEND Orthopaedic Surgery
PROC: 0SRD0J9 Replacement of Left Knee Joint with Synthetic Substitute, Cemented, Open Approach (ICD-10-PCS; principal; 2017-02-03)
DX: M17.12 Unilateral primary osteoarthritis, left knee (principal); E11.9 Type 2 diabetes mellitus without complications; I10 Essential (primary) hypertension; K21.9 Gastro-esophageal reflux disease without esophagitis; G89.29 Other chronic pain; M47.896 Other spondylosis, lumbar region; Z79.84 Long term (current) use of oral hypoglycemic drugs; Z79.82 Long term (current) use of aspirin; Z79.899 Other long term (current) drug therapy; H90.5 Unspecified sensorineural hearing loss; N40.1 Benign prostatic hyperplasia with lower urinary tract symptoms; R35.1 Nocturia; F32.9 Major depressive disorder, single episode, unspecified; Z96.642 Presence of left artificial hip joint; E78.2 Mixed hyperlipidemia
CPT/HCPCS: 01402; 36415; 51798; 73560-26-LT; 73560-LT; 80048; 80053; 82962; 85025; 85730; 87641; 94762; 97110-GP; 97116-GP; 97162-GP; 97165-GO; 97535-GO; A9270-GY; C1776; J0171; J0690; J0697; J1885; J2270; J2405; J2704; J3010; J3370; J3490; J7120

== ENCOUNTER 2020-08-07 07:08 | Day surgery (SDC) | payer OTHER, MEDICARE, BC ==
[~2020-08-07 07:08] MED LIST changes: -Bisacodyl 5 MG Tab PO PRN; +Lidocaine 1%/Sod Bicarbonate in NS 8.4% 1 ML Syringe IDERM PRN; -Lidocaine 1%/Sod Bicarbonate in NS 8.4% 1 ML Syringe IV PRN; -Magnesium Hydroxide 400 MG/5 ML Susp 30 ML Cup PO PRN; -Morphine 2 MG/ML Syringe IVPUSH PRN; -Naloxone 0.4 MG/ML SDV IVPUSH PRN; -Ondansetron 4 MG/2 ML SDV IVPUSH PRN; -Sennosides 8.6 MG Tab PO PRN; -diphenhydrAMINE 50 MG/ML SDV IVPUSH PRN
[2020-08-07] MEDS ORDERED: Propofol 200 MG/20 ML SDV ONE ×2 (07:27→08:28)
[2020-08-07] MEDS ORDERED: Lidocaine 1% 4 ML ONE (07:28)
--- NOTE | 2020-08-07 07:34 | PCM.PREANE ---
Preanesthetic Assessment - Procedure Proposed Procedure: Colonoscopy - Anesthesia/Transfusion/Family Hx Anesthesia History: Prior Anesthesia Without Reaction Family History of Anesthesia Reaction: No Transfusion History: No Prior Transfusion(s) Intubation History: Unknown - Review of Systems General: No Symptoms Pulmonary: Other (CPAP at home but does not use it bc he says he is claustraphobic ) Cardiovascular: Other (HTN - ) Gastrointestinal: No Symptoms Neurological: No Symptoms Other: Reports: None, Diabetes (oral controlled ), Depression - Physical Assessment NPO Status Date: 08/06/20 NPO Status Time: 21:00 Height: 1.75 m ASA Class: 3 Mental Status: Alert & Oriented x3 Airway Class: Mallampati = 3 Dentition: Reports: Missing Tooth/Teeth (multiple missing teeth lower bilaterally and top right side ) Thyro-Mental Finger Breadths: 3 Mouth Opening Finger Breadths: 4 ROM/Head Extension: Full Lungs: Clear to Auscultation, Normal Respiratory Effort Cardiovascular: Regular Rate, Regular Rhythm Other: large neck circumfrance - Allergies Allergies/Adverse Reactions: Allergies Allergy/AdvReac Type Severity Reaction Status Date / Time erythromycin base Allergy Rash Verified 08/04/20 10:44 hydrocodone Allergy Rash Verified 08/04/20 10:44 - Blood Blood Available: No - Anesthesia Plan Pre-Op Medication Ordered: Beta Johnny Beta Johnny: Metoprolol (IV in room if needed) - Acknowledgements Anesthesia Type Planned: MAC Pt an Appropriate Candidate for the Planned Anesthesia: Yes Alternatives and Risks of Anesthesia Discussed w Pt/Guardian: Yes Pt/Guardian Understands and Agrees with Anesthesia Plan: Yes PreAnesthesia Questionnaire HEENT History: Reports: Hard of Hearing, Impaired Vision, Other (See Below) Other HEENT History: uses glasses for reading; has hearing aids but does not have them here. Cardiovascular History: Reports: High Cholesterol, Hypertension, Other (See Below) Other Cardiovascular History: palpitations, hypertension, pvcs Respiratory History: Reports: Sleep Apnea Gastrointestinal History: Reports: Diverticulosis, GERD Genitourinary History: Reports: BPH, Other (See Below) Other Genitourinary History: nocturia, enlarged prostate HEALTH INFORMATION ADMINISTRATOR History: Reports: None Musculoskeletal History: Reports: Arthritis, Back Pain, Chronic, Other (See Below) Other Musculoskeletal History: Shoulder Arthralgia Neurological History: Reports: None Psychiatric History: Reports: Depression Endocrine/Metabolic History: Reports: Diabetes, Type II, Obesity/BMI 30+, Vitamin D Deficiency Hematologic History: Reports: None Immunologic History: Reports: None Oncologic (Cancer) History: Reports: None Dermatologic History: Reports: None - Infectious Disease History Infectious Disease History: Reports: None - Past Surgical History Head Surgeries/Procedures: Reports: None HEENT Surgical History: Reports: None, Cataract Surgery Cardiovascular Surgical History: Reports: None Respiratory Surgical History: Reports: None GI Surgical History: Reports: Colonoscopy Female Surgical History: Reports: None Male Surgical History: Reports: None Endocrine Surgical History: Reports: None Neurological Surgical History: Reports: None Musculoskeletal Surgical History: Reports: Joint Replacement, ORIF, Other (See Below) Other Musculoskeletal Surgeries/Procedures:: left hip replacement, several sugeries to right leg, left total knee Oncologic Surgical History: Reports: None Dermatological Surgical History: Reports: None - SUBSTANCE USE Tobacco Use Status *Q: Never Tobacco User Days Per Week of Alcohol Use: 1 Number of Drinks Per Day: 1 Total Drinks Per Week: 1 Recreational Drug Use History: No - HOME MEDS Home Medications: Home Meds amLODIPine [Norvasc] 10 mg PO DAILY 10/04/15 [History] atorvaSTATin [Lipitor] 20 mg PO BEDTIME 10/04/15 [History] Finasteride 5 mg PO DAILY 01/31/17 [History] Omeprazole 20 mg PO Q48H 01/31/17 [History] Potassium Chloride 20 meq PO BID 01/31/17 [History] Losartan Potassium 100 mg PO DAILY 02/03/17 [History] Celecoxib 200 mg PO QAM 08/04/20 [History] Cholecalciferol (Vitamin D3) [Vitamin D3] 2,000 unit PO DAILY 08/04/20 [History] Finasteride [Proscar] 5 mg PO DAILY 08/04/20 [History] Metoprolol Succinate 50 mg PO DAILY 08/04/20 [History] Terazosin [Hytrin] 2 mg PO DAILY 08/04/20 [History] Vit C/E/Zinc Ox/Darrell/Lut/Zeax [Icaps Areds2 Softgel] 1 cap PO BID 08/04/20 [History] hydroCHLOROthiazide [Hydrochlorothiazide] 50 mg PO DAILY 08/04/20 [History] metFORMIN HCl [Metformin HCl] 1,000 mg PO BID 08/04/20 [History] - CURRENT (IN HOUSE) MEDS Current Meds: Current Medications Lactated Ringer's (Ringers, Lactated) 1,000 mls @ 125 mls/hr IV ASDIRECTED CLEOPATRA Stop: 08/07/20 23:00 Lidocaine/Sodium Bicarbonate (Lidocaine 1%/Sod Bicarbonate In Ns 8.4% 1 Ml Syringe) 0.25 ml IDERM ONETIME PRN PRN Reason: Prior to IV Start Stop: 08/07/20 18:00 Sodium Chloride (Sodium Chloride 0.9% 10 Ml Syringe) 10 ml FLUSH ASDIRECTED PRN PRN Reason: Keep Vein Open Stop: 08/07/20 18:00
[2020-08-07] MEDS ORDERED: Metoprolol Tartrate 5 MG/5 ML SDV ONE (08:39)
--- NOTE | 2020-08-07 09:00 | PCM48HPAN ---
Post Anesthesia Note - EVALUATION WITHIN 48HRS OF ANESTHETIC Vital Signs in Normal Range: Yes Patient Participated in Evaluation: Yes Respiratory Function Stable: Yes Airway Patent: Yes Cardiovascular Function Stable: Yes Hydration Status Stable: Yes Pain Control Satisfactory: Yes Nausea and Vomiting Control Satisfactory: Yes Mental Status Recovered: Yes Vital Signs: 0850 140/81 93 on 4 L 63 pulse 20 97.6 Last Vital Signs Temp 36.6 C 08/07/20 07:12 Pulse 63 08/07/20 07:12 Resp 16 08/07/20 07:12 BP 146/76 H 08/07/20 07:12 Pulse Ox 96 08/07/20 07:12
[2020-08-07 09:45] VITALS: BP 152/85; PULSE 63
--- NOTE | 2020-08-07 10:02 | PROC ---
DATE OF OPERATION: 08/07/2020 SURGEON: Piyush Kumar MD PREOPERATIVE DIAGNOSES: Prior history of polyps POSTOPERATIVE DIAGNOSES: - nodular ileocecal valve - biopsied - polyps PROCEDURE: Colonoscopy. ANESTHESIA: Monitored anesthesia care. ESTIMATED BLOOD LOSS: Minimal. FINDINGS: Nodular ileocecal valve without appearance of malignancy, this was biopsied. Two small polyps in the ascending colon removed, 2 small polyps in the transverse colon removed, and 1 polyp in the descending colon removed. INDICATION AND CONSENT: The patient is a 70-year-old male with history of polyps. Last colonoscopy was 5 years ago. The patient was asked to follow up with a colonoscopy for which he was evaluated in my clinic, and after workup, he became a candidate for the procedure. We discussed risks, benefits, and alternatives, and informed consent was obtained. DETAILS OF PROCEDURE: The patient was taken to the procedure room, placed in left lateral decubitus position. Monitored anesthesia care was induced. Then, we began the procedure with perianal exam and digital rectal exam which were both normal. The scope was inserted into the colon and taken all the way to the ileocecal valve. Prep was good. Appendiceal orifice was photographed. The ileocecal valve was visualized and photographed. It appeared to have some nodularity to it at the opening. This did not look malignant. Therefore, biopsies were taken. Then, the ascending colon was examined. We found two polyps, one was 2 mm, the other was 3 mm. These were both removed with cold Jumbo forceps. EBL was minimal. In the transverse colon, we also found two small polyps, 3 mm each, which were both removed with Jumbo forceps. EBL was minimal. In the descending colon, there was 1 pedunculated 7 mm polyp. This was removed with a hot snare completely and retrieved. EBL was none. The rest of the colon was remarkable for scattered diverticulosis. In fact, there were 1 or 2 diverticula in the ascending colon, a few in the transverse, and mostly in the sigmoid colon. The rectum appeared normal. On retroflexion, the rectum had internal hemorrhoids grade 2. Then, the scope was placed back into the transverse colon. Air was suctioned out and the procedure was concluded. The patient was awoken from monitored anesthesia care and taken to the PACU for recovery. The patient to be allowed to return home and come back in 2 weeks for postop discussion. MMODAL /[id number] LAURIE
== END 2020-08-07 09:48 | disposition home or self-care (01) ==
LOC: JD.SDS 07:08
PROVIDERS: ATTEND Surgery
DX: Z12.11 Encounter for screening for malignant neoplasm of colon (principal); D12.2 Benign neoplasm of ascending colon; D12.3 Benign neoplasm of transverse colon; D12.4 Benign neoplasm of descending colon; K57.30 Diverticulosis of large intestine without perforation or abscess without bleeding; K64.1 Second degree hemorrhoids; E11.40 Type 2 diabetes mellitus with diabetic neuropathy, unspecified; E78.00 Pure hypercholesterolemia, unspecified; I10 Essential (primary) hypertension; E66.9 Obesity, unspecified; E55.9 Vitamin D deficiency, unspecified; K21.9 Gastro-esophageal reflux disease without esophagitis; Z80.0 Family history of malignant neoplasm of digestive organs; Z88.5 Allergy status to narcotic agent; Z88.8 Allergy status to other drugs, medicaments and biological substances; Z98.890 Other specified postprocedural states; Z79.899 Other long term (current) drug therapy; Z79.84 Long term (current) use of oral hypoglycemic drugs; Z68.41 Body mass index [BMI] 40.0-44.9, adult
CPT/HCPCS: 00812; 82947; 88305; J2704; J3490; J7120